=== PATIENT | female | born 1940 | race Caucasian/White ===

== ENCOUNTER 2022-06-13 15:23 | Outpatient (RCR) | payer MEDICARE, BC, SELFPAY ==
[2022-06-13 16:34] LABS: Basophils Absolute Auto 0.02 K/uL (0.00-0.30); Basophils Percent Auto 0.4 % (0.0-3.0); Eosinophils Absolute Auto 0.27 K/uL (0.00-0.50); Eosinophils Percent Auto 5.2 % (0.0-7.0); Hematocrit 41.2 % (33.0-51.0); Hemoglobin* 13.6 gm/dL (12.0-16.0); Immature Granulocytes Abs Auto 0.04 K/uL (0.00-0.30); Immature Granulocytes Pct Auto 0.8 %; Lymphocytes Absolute Auto 2.27 K/uL (0.90-2.90); Mean Corpuscular HGB Conc 33 gm/dL (32-36); Mean Corpuscular Hemoglobin 31 pg (26-34); Mean Corpuscular Volume 93 fL (80-100); Monocytes Percent Auto 11.2 % (0.0-11.0); Neutrophils Percent Auto 38.4 % (42.0-72.0); Red Blood Count 4.41 m/uL (4.00-5.20); White Blood Count* 5.16 K/uL (4.50-11.00)
[2022-06-13 19:30] LABS: Platelet Count* 6 K/uL (140-440); Slide Review Reflex Yes
[2022-06-14 07:57] LABS: Slide Review Acceptable Review (Acceptable)
== END 2023-06-12 14:20 | disposition home or self-care (01) ==
LOC: LAB 15:23
PROVIDERS: Internal Medicine; PCP Family Medicine
DX: D69.3 Immune thrombocytopenic purpura (principal)
CPT/HCPCS: 36415; 85025

== ENCOUNTER 2022-06-13 20:18 | Emergency (ER) | payer MEDICARE, BC, SELFPAY ==
[2022-06-13 20:23] VITALS: BP 157/99; PULSE 97; RESP 16; TEMP 36.7; O2SAT 96; BMI 28.4
--- NOTE | 2022-06-13 20:42 | ED_ITS ---
HPI - General Adult General Time Seen by Provider: 20:42 <Eloisa Hoffman MD - Last Filed: 06/13/22 22:11> Date Seen: 06/13/22 <Eloisa Hoffman MD - Last Filed: 06/13/22 22:11> Chief complaint: Unspecified Complaint, Adult <Eloisa Hoffman MD - Last Filed: 06/13/22 22:11> Stated complaint: Platelets @ 6000-sent by [facility] <Eloisa Hoffman MD - Last Filed: 06/13/22 22:11> Time Seen by Provider: 06/13/22 20:26 <Eloisa Hoffman MD - Last Filed: 06/13/22 22:11> Source: patient and RN notes reviewed <Eloisa Hoffman MD - Last Filed: 06/13/22 22:11> Mode of arrival: ambulatory <Eloisa Hoffman MD - Last Filed: 06/13/22 22:11> Limitations: no limitations <Eloisa Hoffman MD - Last Filed: 06/13/22 22:11> History of Present Illness HPI narrative: Patient is a 81-year-old female with a platelet count of 6000 drawn earlier today that was referred to us by male Hematology. She has been having thrombocytopenia and the workup to date has not given a definitive diagnosis. On May 06 she was hospitalized at [facility] with a platelet count down to 1000. Sounds if she was treated with dexamethasone, IV IG and platelet transfusion. Her platelets have come up, she was 85,000 on June 10. They have continue to follow her every few days. She did start back on her Eliquis this morning but did not take it this evening. They opted to come to our ER. The family member with her states she is supposed to be treated with [address] eroids. 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 Patient is not having any active bleeding. She does not have any petechiae or purpura like she had at her time of initial diagnosis. She has noted no nose bleeds, no oral pharyngeal bleeding. There has been no evidence of any GI bleeding. Her hemoglobins actually remain stable. Reviewed with them that we will need to talk to [facility] to get the recommendations for steroids. We will order platelets but have reviewed with them that we have to get these in from [facility]. If [facility] does want IV IG, will have to talk to Hematology regarding this. Patient is despondent, stating she is just going to , the jewelry casting model maker own care, [facility] does not care. I have reviewed with her that this really is not the case. Sometimes people have some difficult medical diagnoses that we are not able to pinpoint immediately. Certainly does not mean that no one cares. Instead of feeling this way, I have offered her to think about it as it is still in the process of being evaluated, she has some unknowns but there are treatments for her that help her. I have reassured her that she is not actively bleeding and this is very reassuring. We should be able to give her some temporizing measures with the platelets and the outline treatments from hematology. I will most definitely be talking to hematology. <Eloisa Hoffman MD - Last Filed: 06/13/22 22:11> Related Data Home medications: Home Medications Medication Instructions Recorded Confirmed ferrous sulfate 325 mg (65 mg 325 mg PO .EVERY OTHER DAY 05/14/22 06/13/22 iron) tablet metformin 500 mg tablet 1,000 mg PO QPM 05/14/22 06/14/22 ascorbic acid (vitamin C) 1,000 mg 1 g PO Q6H 06/03/22 06/13/22 capsule cholecalciferol (vitamin D3) 25 25 mcg PO .QOD 06/03/22 06/13/22 mcg (1,000 unit) capsule benifiber PO BID 06/13/22 lisinopril 40 mg tablet 40 mg PO DAILY 06/14/22 06/14/22 Previous Rx's Medication Instructions Recorded apixaban 5 mg tablet (Eliquis) 5 mg PO BID #180 tabs 03/26/22 atenolol 50 mg tablet 50 mg PO BID #180 tabs 03/26/22 chlorthalidone 25 mg tablet 25 mg PO QDAY #90 tabs 03/26/22 gabapentin 300 mg capsule 300 mg PO QPM #90 caps 03/26/22 <Eloisa Hoffman MD - Last Filed: 06/13/22 22:11> Allergies/adverse reactions: Allergies Allergy/AdvReac Type Severity Reaction Status Date / Time latex Allergy Intermediate rash, itchy Verified 06/13/22 20:32 ULTRA SOUND GEL Allergy Severe persistent Uncoded 05/14/22 12:49 rash <Eloisa Hoffman MD - Last Filed: 06/13/22 22:11> Review of Systems Status of ROS: Reports: 6 or more systems reviewed and unremarkable except as noted in History and below <Eloisa Hoffman MD - Last Filed: 06/13/22 22:11> 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 <Eloisa Hoffman MD - Last Filed: 06/13/22 22:11> Social History: Social History Smoking Status: Never smoker Do you use any of these nicotine containing products: None How often do you have a drink containing alcohol: never How often do you have six or more drinks on one occasion: Never AUDIT-C Alcohol total score: 0 Non-prescribed substance use: denies use <Eloisa Hoffman MD - Last Filed: 06/13/22 22:11> Exam Const: Vital Signs, click to edit/add: Vital Signs - 24 hr 06/13/22 20:23 06/13/22 23:39 06/14/22 02:41 Temperature 98.0 F 97.9 F Pulse Rate 91 Pulse Rate [Right Pulse Oximeter] 97 95 Respiratory Rate 16 16 16 Blood Pressure 145/94 H Blood Pressure [Ri ght Upper Arm] 157/99 H 163/88 H Pulse Oximetry 96 98 98 Oxygen Delivery Me thod Room Air Room Air 06/14/22 02:58 06/14/22 02:59 06/14/22 05:00 Temperature 97.7 F 97.8 F Pulse Rate 92 90 Pulse Rate [Right Pulse Oximeter] 87 Respiratory Rate 16 16 16 Blood Pressure 147/97 H 155/97 H Blood Pressure [Ri ght Upper Arm] 140/81 H Pulse Oximetry 96 95 95 Oxygen Delivery Me thod Room Air 06/14/22 06:00 06/14/22 07:00 06/14/22 09:00 Temperature 97.6 F Pulse Rate Pulse Rate [Right Pulse Oximeter] 85 87 97 Respiratory Rate 16 18 18 Blood Pressure Blood Pressure [Ri ght Upper Arm] 148/115 H 143/97 H 144/95 H Pulse Oximetry 95 95 96 Oxygen Delivery Me thod Room Air Room Air <Eloisa Hoffman MD - Last Filed: 06/13/22 22:11> Vital Signs, click to edit/add: Vital Signs - 24 hr 06/13/22 20:23 06/13/22 23:39 06/14/22 02:41 Temperature 98.0 F 97.9 F Pulse Rate 91 Pulse Rate [Right Pulse Oximeter] 97 95 Respiratory Rate 16 16 16 Blood Pressure 145/94 H Blood Pressure [Ri ght Upper Arm] 157/99 H 163/88 H Pulse Oximetry 96 98 98 Oxygen Delivery Me thod Room Air Room Air 06/14/22 02:58 06/14/22 02:59 06/14/22 05:00 Temperature 97.7 F 97.8 F Pulse Rate 92 90 Pulse Rate [Right Pulse Oximeter] 87 Respiratory Rate 16 16 16 Blood Pressure 147/97 H 155/97 H Blood Pressure [Ri ght Upper Arm] 140/81 H Pulse Oximetry 96 95 95 Oxygen Delivery Me thod Room Air 06/14/22 06:00 06/14/22 07:00 06/14/22 09:00 Temperature 97.6 F Pulse Rate Pulse Rate [Right Pulse Oximeter] 85 87 97 Respiratory Rate 16 18 18 Blood Pressure Blood Pressure [Ri ght Upper Arm] 148/115 H 143/97 H 144/95 H Pulse Oximetry 95 95 96 Oxygen Delivery Me thod Room Air Room Air <Kelton Delgadillo MD - Last Filed: 06/14/22 07:10> Vital Signs, click to edit/add: Vital Signs - 24 hr 06/13/22 20:23 06/13/22 23:39 06/14/22 02:41 Temperature 98.0 F 97.9 F Pulse Rate 91 Pulse Rate [Right Pulse Oximeter] 97 95 Respiratory Rate 16 16 16 Blood Pressure 145/94 H Blood Pressure [Ri ght Upper Arm] 157/99 H 163/88 H Pulse Oximetry 96 98 98 Oxygen Delivery Me thod Room Air Room Air 06/14/22 02:58 06/14/22 02:59 06/14/22 05:00 Temperature 97.7 F 97.8 F Pulse Rate 92 90 Pulse Rate [Right Pulse Oximeter] 87 Respiratory Rate 16 16 16 Blood Pressure 147/97 H 155/97 H Blood Pressure [Ri ght Upper Arm] 140/81 H Pulse Oximetry 96 95 95 Oxygen Delivery Me thod Room Air 06/14/22 06:00 06/14/22 07:00 06/14/22 09:00 Temperature 97.6 F Pulse Rate Pulse Rate [Right Pulse Oximeter] 85 87 97 Respiratory Rate 16 18 18 Blood Pressure Blood Pressure [Ri ght Upper Arm] 148/115 H 143/97 H 144/95 H Pulse Oximetry 95 95 96 Oxygen Delivery Me thod Room Air Room Air <Yuri Clark MD - Last Filed: 06/14/22 16:49> Documenting provider has reviewed patient's vital signs: yes <Eloisa Hoffman MD - Last Filed: 06/13/22 22:11> Common normals: no apparent distress, average body habitus, oriented x3, no limitations, healthy appearing, alert and well nourished <Eloisa Lino MD - Last Filed: 06/13/22 22:11> General appearance: cooperative, comfortable, well kempt, well developed and anxious <Eloisa Hoffman MD - Last Filed: 06/13/22 22:11> Other: No ecchymosis outside of the blood draw in her left antecubital fossa from earlier today. No petechiae, no purpura. <Eloisa Hoffman MD - Last Filed: 06/13/22 22:11> HENMT: Common normals: normocephalic, head/scalp atraumatic, hearing grossly normal bilaterally, external nose normal, nasal mucous membranes and turbinates normal, moist oral mucous membranes, oropharynx normal, dentition normal and gingiva normal <Eloisa Hoffman MD - Last Filed: 06/13/22 22:11> Head and scalp: normocephalic and atraumatic <Eloisa Hoffman MD - Last Filed: 06/13/22 22:11> Nose: external nose normal and nasal mucous membranes and turbinates normal <Eloisa Hoffman MD - Last Filed: 06/13/22 22:11> Other: No bleeding noted. <Eloisa Hoffman MD - Last Filed: 06/13/22 22:11> Eye: Common normals: PERRL, EOMs intact bilaterally, conjunctivae normal and no scleral icterus <Eloisa Hoffman MD - Last Filed: 06/13/22 22:11> Conjunctiva: conjunctiva(e) normal <Eloisa Hoffman MD - Last Filed: 06/13/22 22:11> Pupil: PERRL <Eloisa Hoffman MD - Last Filed: 06/13/22 22:11> Neck & C-Spine: Common normals: full ROM, no lymphadenopathy, supple, no meningeal signs, no JVD and thyroid normal <Eloisa Hoffman MD - Last Filed: 06/13/22 22:11> Thyroid: thyroid normal <Eloisa Hoffman MD - Last Filed: 06/13/22 22:11> Resp: Common normals: normal respiratory effort, no retractions, no use of accessory muscles and clear to auscultation bilaterally <Eloisa Lino MD - Last Filed: 06/13/22 22:11> Auscultation: clear to auscultation bilaterally <Eloisa Hoffman MD - Last Filed: 06/13/22 22:11> Cardio: Common normals: no JVD, regular rate, regular rhythm (Maybe some ectopy verses irregularity), S1 normal heart sound, S2 normal heart sound, no gallops, no clicks and no murmurs <Eloisa Hoffman MD - Last Filed: 06/13/22 22:11> Rate: regular rate <Eloisa Hoffman MD - Last Filed: 06/13/22 22:11> Rhythm: regular rhythm (Maybe some ectopy verses irregularity) <Eloisa Hoffman MD - Last Filed: 06/13/22 22:11> Heart sounds: S1 normal and S2 normal <Eloisa Hoffman MD - Last Filed: 06/13/22 22:11> GI: Common normals: Normal to inspection, nondistended, normoactive bowel sounds present <Eloisa Hoffman MD - Last Filed: 06/13/22 22:11> Neuro: Common normals: oriented x3 <Eloisa Hoffman MD - Last Filed: 06/13/22 22:11> Sensorium/orientation: alert <Eloisa Hoffman MD - Last Filed: 06/13/22 22:11> Meningeal signs: no meningeal signs <Eloisa Hoffman MD - Last Filed: 06/13/22 22:11> Psych: Appearance: well kempt <Eloisa Hoffman MD - Last Filed: 06/13/22 22:11> Course Reevaluation(s) Reevaluation #1: Reviewed with them the recommendations of dexamethasone 40 mg PO daily x4 days by [facility]. She had gotten 1 g IV IG when at [facility] before and reviewed with them that we do not have this. The physician reviewed that they typically reserve this for active bleeding and he thought we could hold that at this time. He did agree with platelet transfusion. If her platelets are not coming up may need to consider the IVIG and further transfusion. Her physician following her and Hematology at [facility] is Dr. Lora. The on-call physician recommended that they be in contact with him tomorrow. The understand right now that there are no hospital beds. Unfortunately this is a global issue, includes all other local hospitals around us, all other major institutions. We ourselves do not have any hospital beds at this time. Patient will be taking care of in the ER until we can find an appropriate disposition for her. <Eloisa Lino MD - Last Filed: 06/13/22 22:11> Time: 21:13 <Eloisa Hoffman MD - Last Filed: 06/13/22 22:11> Reevaluation #2: I assumed care of this patient from Dr. Zuluaga. Her platelets thrive during the night and she was transfused 1 unit. Unfortunately her follow-up CBC continues to show her platelet count at 6000. She needs transfer to a tertiary hospital with a jewelry casting model maker, ideally [facility] where she has had her care up until this point. She is not actively bleeding and therefore does not need IVIG at this time. She offers no other special concerns. <Kelton Delgadillo MD - Last Filed: 06/14/22 07:10> Consultations Consultation #1: Called the nurse triage [place] [facility], she will page out Hematology for me from [facility]. Furniture Shampooer did call back at 9:02 p.m.. Please see above discussion with the patient which outlines what the jewelry casting model maker recommended. <Eloisa Hoffman MD - Last Filed: 06/13/22 22:11> Time: 20:51 <Eloisa Hoffman MD - Last Filed: 06/13/22 22:11> Vital Signs Vital signs: Initial Vital Signs Temperature 98.0 F 06/13/22 20:23 Temperature Source Temporal Artery Scan 06/13/22 20:23 Pulse Rate 97 06/13/22 20:23 Respiratory Rate 16 06/13/22 20:23 Blood Pressure 157/99 H 06/13/22 20:23 Blood Pressure Mean 118 06/13/22 20:23 Blood Pressure Position Sitting 06/13/22 20:23 Pulse Oximetry 96 06/13/22 20:23 Oxygen Delivery Method 06/13/22 20:23 Vital Signs Temperature 98.0 F 06/13/22 20:23 Pulse Rate 97 06/13/22 20:23 Respiratory Rate 16 06/13/22 20:23 Blood Pressure 157/99 H 06/13/22 20:23 Pulse Oximetry 96 06/13/22 20:23 Oxygen Delivery Method 06/13/22 20:23 Temperature 97.6 F 06/14/22 06:00 Pulse Rate 97 06/14/22 09:00 Respiratory Rate 18 06/14/22 09:00 Blood Pressure 144/95 H 06/14/22 09:00 Pulse Oximetry 96 06/14/22 09:00 Oxygen Delivery Method 06/14/22 07:00 <Eloisa Hoffman MD - Last Filed: 06/13/22 22:11> Initial Vital Signs Temperature 98.0 F 06/13/22 20:23 Temperature Source Temporal Artery Scan 06/13/22 20:23 Pulse Rate 97 06/13/22 20:23 Respiratory Rate 16 06/13/22 20:23 Blood Pressure 157/99 H 06/13/22 20:23 Blood Pressure Mean 118 06/13/22 20:23 Blood Pressure Position Sitting 06/13/22 20:23 Pulse Oximetry 96 06/13/22 20:23 Oxygen Delivery Method 06/13/22 20:23 Vital Signs Temperature 98.0 F 06/13/22 20:23 Pulse Rate 97 06/13/22 20:23 Respiratory Rate 16 06/13/22 20:23 Blood Pressure 157/99 H 06/13/22 20:23 Pulse Oximetry 96 06/13/22 20:23 Oxygen Delivery Method 06/13/22 20:23 Temperature 97.6 F 06/14/22 06:00 Pulse Rate 97 06/14/22 09:00 Respiratory Rate 18 06/14/22 09:00 Blood Pressure 144/95 H 06/14/22 09:00 Pulse Oximetry 96 06/14/22 09:00 Oxygen Delivery Method 06/14/22 07:00 <Kelton Delgadillo MD - Last Filed: 06/14/22 07:10> Initial Vital Signs Temperature 98.0 F 06/13/22 20:23 Temperature Source Temporal Artery Scan 06/13/22 20:23 Pulse Rate 97 06/13/22 20:23 Respiratory Rate 16 06/13/22 20:23 Blood Pressure 157/99 H 06/13/22 20:23 Blood Pressure Mean 118 06/13/22 20:23 Blood Pressure Position Sitting 06/13/22 20:23 Pulse Oximetry 96 06/13/22 20:23 Oxygen Delivery Method 06/13/22 20:23 Vital Signs Temperature 98.0 F 06/13/22 20:23 Pulse Rate 97 06/13/22 20:23 Respiratory Rate 16 12/01/22 20:23 Blood Pressure 157/99 H 06/13/22 20:23 Pulse Oximetry 96 06/13/22 20:23 Oxygen Delivery Method 06/13/22 20:23 Temperature 97.6 F 06/14/22 06:00 Pulse Rate 97 06/14/22 09:00 Respiratory Rate 18 06/14/22 09:00 Blood Pressure 144/95 H 06/14/22 09:00 Pulse Oximetry 96 06/14/22 09:00 Oxygen Delivery Method 06/14/22 07:00 <Yuri Clark MD - Last Filed: 06/14/22 16:49> Medical Decision Making MDM Narrative Medical decision making narrative: Care for this patient was transferred to ok at the end of the overnight physicians shift. She has low platelets and is seeing jewelry casting model maker at the [facility]. She was sent here from the infusion clinic. Unfortunately there are no beds available here or anywhere. So the patient did receive a unit of platelets and this did not improve her platelet level much. The repeat check of platelets was at 6000. The patient also received doses of dexamethasone 10 mg. Soon after my arrival for my shift this morning the patient wanted to speak with me and wanted me also to talk with her advocate. I did speak with a Billie at the infusion clinic who did provide a phone number and the name of a couple doctors at the [facility] where we could coordinate a plan given no beds available for inpatient treatment anywhere. The patient's advocate apparently called the [facility] and arrange for an appointment at 1 p.m. today. The patient wants to leave and be discharged in order to attend this appointment. She understands the risk for bleeding. Given the current situation with hospital admissions being unavailable this plan actually may afford better access for her to appropriate care. She is not actively bleeding and is maintaining normal vital signs. She is discharged to attend to that clinic appointment. Dr. Parveen Clark <Yuri Clark MD - Last Filed: 06/14/22 16:49> Lab Data Labs: Lab Results 06/13/22 06/14/22 Range/Units 21:10 05:30 WBC 3.24 L (4.50-11.00) K/uL RBC 4.25 (4.00-5.20) m/uL Hgb 13.0 (12.0-16.0) gm/dL Hct 38.5 (33.0-51.0) % MCV 91 (80-100) fL MCH 31 (26-34) pg MCHC 34 (32-36) gm/dL RDW Coeff of Kevin 13.0 (11.5-15.5) % Plt Count 6 L* (140-440) K/uL Neut % (Auto) 75.7 H (42.0-72.0) % Lymph % (Auto) 22.5 (20-44) % [place] % (Auto) 1.2 (0.0-11.0) % Eos % (Auto) 0.0 (0.0-7.0) % Baso % (Auto) 0.3 (0.0-3.0) % Neut # (Auto) 2.50 (1.7-7.0) K/uL Lymph # (Auto) 0.70 L (0.90-2.90) K/uL [place] # (Auto) 0.00 (0.00-0.90) K/UL Eos # (Auto) 0.00 (0.00-0.50) K/uL Baso # (Auto) 0.00 (0.00-0.30) K/uL Abs Immat Gran (auto) 0.00 (0.00-0.30) K/uL Imm/Tot Granulo (auto) 0.3 % Blood Type O Negative <Eloisa Hoffman MD - Last Filed: 06/13/22 22:11> Lab Results 06/13/22 06/14/22 Range/Units 21:10 05:30 WBC 3.24 L (4.50-11.00) K/uL RBC 4.25 (4.00-5.20) m/uL Hgb 13.0 (12.0-16.0) gm/dL Hct 38.5 (33.0-51.0) % MCV 91 (80-100) fL MCH 31 (26-34) pg MCHC 34 (32-36) gm/dL RDW Coeff of Kevin 13.0 (11.5-15.5) % Plt Count 6 L* (140-440) K/uL Neut % (Auto) 75.7 H (42.0-72.0) % Lymph % (Auto) 22.5 (20-44) % [place] % (Auto) 1.2 (0.0-11.0) % Eos % (Auto) 0.0 (0.0-7.0) % Baso % (Auto) 0.3 (0.0-3.0) % Neut # (Auto) 2.50 (1.7-7.0) K/uL Lymph # (Auto) 0.70 L (0.90-2.90) K/uL [place] # (Auto) 0.00 (0.00-0.90) K/UL Eos # (Auto) 0.00 (0.00-0.50) K/uL Baso # (Auto) 0.00 (0.00-0.30) K/uL Abs Immat Gran (auto) 0.00 (0.00-0.30) K/uL Imm/Tot Granulo (auto) 0.3 % Blood Type O Negative <Kelton Delgadillo MD - Last Filed: 06/14/22 07:10> Lab Results 06/13/22 06/14/22 Range/Units 21:10 05:30 WBC 3.24 L (4.50-11.00) K/uL RBC 4.25 (4.00-5.20) m/uL Hgb 13.0 (12.0-16.0) gm/dL Hct 38.5 (33.0-51.0) % MCV 91 (80-100) fL MCH 31 (26-34) pg MCHC 34 (32-36) gm/dL RDW Coeff of Kevin 13.0 (11.5-15.5) % Plt Count 6 L* (140-440) K/uL Neut % (Auto) 75.7 H (42.0-72.0) % Lymph % (Auto) 22.5 (20-44) % [place] % (Auto) 1.2 (0.0-11.0) % Eos % (Auto) 0.0 (0.0-7.0) % Baso % (Auto) 0.3 (0.0-3.0) % Neut # (Auto) 2.50 (1.7-7.0) K/uL Lymph # (Auto) 0.70 L (0.90-2.90) K/uL [place] # (Auto) 0.00 (0.00-0.90) K/UL Eos # (Auto) 0.00 (0.00-0.50) K/uL Baso # (Auto) 0.00 (0.00-0.30) K/uL Abs Immat Gran (auto) 0.00 (0.00-0.30) K/uL Imm/Tot Granulo (auto) 0.3 % Blood Type O Negative <Yuri Clark MD - Last Filed: 06/14/22 16:49> Critical Care Time Critical Care Time Critical Care Time: No <Eloisa Hoffman MD - Last Filed: 06/13/22 22:11> Discharge Plan Discharge Clinical Impression: Thrombocytopenia <Eloisa Hoffman MD - Last Filed: 06/13/22 22:11> Patient Disposition: Home, Self-Care <Eloisa Hoffman MD - Last Filed: 06/13/22 22:11> Condition: Unchanged <Eloisa Hoffman MD - Last Filed: 06/13/22 22:11> Additional Instructions: Follow-up with clinic appointment in [place] as scheduled. Return if worsening. <Eloisa Hoffman MD - Last Filed: 06/13/22 22:11> Prescriptions: No Action ascorbic acid (vitamin C) 1,000 mg capsule 1 g PO Q6H cholecalciferol (vitamin D3) 25 mcg (1,000 unit) capsule 25 mcg PO .QOD ferrous sulfate 325 mg (65 mg iron) tablet 325 mg PO .EVERY OTHER DAY metformin 500 mg tablet 1,000 mg PO QPM benifiber PO BID lisinopril 40 mg tablet 40 mg PO DAILY Eliquis 5 mg tablet 5 mg PO BID Qty: 180 3RF atenolol 50 mg tablet 50 mg PO BID Qty: 180 3RF chlorthalidone 25 mg tablet 25 mg PO QDAY Qty: 90 3RF gabapentin 300 mg capsule 300 mg PO QPM Qty: 90 3RF <Eloisa Hoffman MD - Last Filed: 06/13/22 22:11> Follow Up/Referrals: Yuri Boyer MD [Primary Care Provider] - <Eloisa Hoffman MD - Last Filed: 06/13/22 22:11> Stand Alone Forms: MyHealth Info Instructions <Eloisa Hoffman MD - Last Filed: 06/13/22 22:11>
[2022-06-13] MEDS: dexAMETHasone 4 MG TABLET 10 MG PO (21:48)
[2022-06-13 23:39] VITALS: BP 163/88; PULSE 95; RESP 16; O2SAT 98
[2022-06-14] VITALS (7 sets, daily range): BP systolic 140–155; BP diastolic 81–115; PULSE 85–97; RESP 16–18; TEMP 36.4–36.6; O2SAT 95–98
[2022-06-14 05:56] LABS: Basophils Percent Auto 0.3 % (0.0-3.0); Hematocrit 38.5 % (33.0-51.0); Immature Granulocytes Pct Auto 0.3 %; Lymphocytes Percent Auto 22.5 % (20-44); Mean Corpuscular HGB Conc 34 gm/dL (32-36); Mean Corpuscular Hemoglobin 31 pg (26-34); Mean Corpuscular Volume 91 fL (80-100); Monocytes Percent Auto 1.2 % (0.0-11.0); Neutrophils Percent Auto 75.7 % (42.0-72.0); Red Blood Count 4.25 m/uL (4.00-5.20); White Blood Count* 3.24 K/uL (4.50-11.00)
[2022-06-14 06:01] LABS: Platelet Count* 6 K/uL (140-440); Slide Review Reflex No
--- NOTE | 2022-06-14 06:03 | ED.NURSE ---
MD Delgadillo updated on critical platelets
[2022-06-14] MEDS: dexAMETHasone 10 MG/ML inj PO (08:49)
--- NOTE | 2022-06-14 09:32 | PC.NURSE ---
pt utilization management manager light and wanting to be discharged, pt health respiratory care faculty Stephanie was able to make an appointment for her at [facility] at 1pm, per Dr Clark pt is fine to go and follow up with [facility] today, pt states, I should have just gone there in the first place, IV discontinued
== END 2022-06-14 09:45 | disposition home or self-care (01) ==
PROVIDERS: Emergency Provider Family Medicine; PCP Family Medicine
DX: D69.6 Thrombocytopenia, unspecified (principal)
CPT/HCPCS: 36415; 36430; 85025; 86900; 86901; 99284; 99285; A9270; J1100; P9019

== ENCOUNTER 2022-09-10 09:12 | Outpatient (CLI) | payer MEDICARE, BC, SELFPAY ==
[2022-09-10 13:56] LABS: Chloride* 99 mmol/L (96-114)
[2022-09-10 13:57] LABS: Potassium* 3.8 mmol/L (3.6-5.1); Sodium* 138 mmol/L (135-149)
[2022-09-10 13:59] LABS: Cholesterol* 169 mg/dL (90-199); Creatinine* 0.8 mg/dL (0.5-1.5); Estimated Glomerular Filt Rate 74 ml/min
[2022-09-10 14:00] LABS: Blood Urea Nitrogen* 24 mg/dL (7-30); Calcium* 10.3 mg/dL (8.4-10.6); Carbon Dioxide* 31 mmol/L (20-32); Glucose* 137 mg/dL (60-115); Triglycerides* 113 mg/dL (40-149)
[2022-09-10 14:01] LABS: HDL Cholesterol* 85 mg/dL (>=50); LDL Cholesterol Calculated 61 mg/dL (<100)
== END 2022-09-10 09:13 | disposition home or self-care (01) ==
PROVIDERS: PCP Family Medicine; Visit Provider Family Medicine
DX: E13.9 Other specified diabetes mellitus without complications (principal); I10 Essential (primary) hypertension; Z13.6 Encounter for screening for cardiovascular disorders
CPT/HCPCS: 80048; 80061

== ENCOUNTER 2023-04-12 09:30 | Outpatient (CLI) | payer MEDICARE, BC, SELFPAY ==
[2025-04-12 10:31] LABS: Basophils Absolute Auto 0.01 K/uL (0.00-0.30); Basophils Percent Auto 0.2 % (0.0-3.0); Eosinophils Absolute Auto 0.03 K/uL (0.00-0.50); Eosinophils Percent Auto 0.6 % (0.0-7.0); Hematocrit* 41.5 % (33.0-51.0); Hemoglobin* 13.6 gm/dL (12.0-16.0); Immature Granulocytes Abs Auto 0.03 K/uL (0.00-0.30); Immature Granulocytes Pct Auto 0.6 %; Lymphocytes Absolute Auto 1.74 K/uL (0.90-2.90); Lymphocytes Percent Auto 34.1 % (20-44); Mean Corpuscular HGB Conc 33 gm/dL (32-36); Mean Corpuscular Hemoglobin 31 pg (26-34); Mean Corpuscular Volume 95 fL (80-100); Monocytes Percent Auto 12.2 % (0.0-11.0); Neutrophils Absolute Auto 2.67 K/uL (1.7-7.0); Neutrophils Percent Auto 52.3 % (42.0-72.0); Platelet Count* 186 K/uL (140-440); RDW Coefficient of Variation % 13.2 % (11.5-15.5); Red Blood Count* 4.39 m/uL (4.00-5.20)
[2025-04-12 10:33] LABS: Slide Review Reflex No
== END 2023-04-12 09:31 | disposition home or self-care (01) ==
LOC: NPINS 05-10 08:28
PROVIDERS: PCP Internal Medicine; Visit Provider Nurse Practitioner
DX: D69.3 Immune thrombocytopenic purpura (principal)
CPT/HCPCS: 85025

== ENCOUNTER 2023-04-14 10:34 | Outpatient (CLI) | payer MEDICARE, BC, SELFPAY | END 2023-04-14 10:35 | disposition home or self-care (01) | PROVIDERS: PCP Family Medicine; Visit Provider Family Medicine | DX: R53.83 Other fatigue (principal) | CPT/HCPCS: 80053; 84443 ==

== ENCOUNTER 2023-04-30 10:30 | Outpatient (RCR) | payer MEDICARE, BC, SELFPAY ==
--- NOTE | 2023-04-17 16:53 | PT.OPEX ---
PT [facility] Eval PT [facility] Outpatient Eval Start: 04/15/23 16:51 Freq: Status: Active Protocol: Document 04/17/23 10:55 MLS (Rec: 04/17/23 16:48 MLS [id number]) E-signed By Jennifer Coley DPT Physical Therapy Outpatient Evaluation Insurance Information Recert Due Date 07/15/23 Insurance Name Medicare B Medical Diagnosis R26.89 abnormalities of gait and mobility Treating Diagnosis M62.81 muscle weakness ( generalized) R26.2 Difficulty walking M54.50 Low back pain Referring MD Leslee Joel MD Subjective Subjective Patient is an 82-year-old female who presents to physical therapy with signs of overall weakness, deconditioning and balance deficits. She also reports having spinal stenosis. She states that in 1965 she had pelvic fracture and right broken femur. She states that she has had problems since then. She also reports that her left leg is shorter than the other. She reports that she goes to chiropractor once every two weeks for her back. She states that her low back is sore upon waking in the morning, so she puts ice and heat on it and it gives her some relief. She reports some numbness and tingling into both legs at times, but she is used to it. She states that she started on anti-depressant 2 days ago. Prior to the anti-depressant she was only sleeping four hours a night. She states that the new medication seems to help her sleep a little better the past couple of nights. She reports that she has not had any falls. She reports that she does have a walker in her bedroom but she does not use it. She states that she does play cards with her friends a couple times a week. She reports that prolonged sitting in certain chairs can make her back pain and stiffness worse. She states that she does all housework and walks down the driveway to get the mail. She lives in a one level townhouse. There is currently a lot of construction going on around her home, so she doesn't feel safe to walk outside. She feels very unsteady on uneven ground due to her balance. Patient would like to achieve better balance and strength through physical therapy. She would like to get stronger as far as walking goes and feel safer. Pain Comments Today: 0/10 on a 0-10 pain scale with 10 = extreme pain At its worst: 8/10 At its best: 0/10 Current Work Status Retired Occupation She is a retired hairdresser Precautions Treatment Precautions/Contraindications PMH: idiopathic thrombocytopenia purpura, diabetes 1.5, managed as type 2, hypertension, AFib , spinal stenosis of the lumbar region, ascending aortic aneurysm, osteoporosis, pulmonary hypertension, radicular leg pain, neuropathy , cholelithiasis, history of a pelvic fracture, history of crush injury to the left side of her body especially her left upper leg, R RHA, bilateral TKA Weight Bearing Status Full Weight Bearing Therapy Limitations/Systems Review Not Limited Objective Other/Pertinent Objective moderate kyphosis Romberg eyes open: 60 sec with perturbation ( shoes off, feet together) Romberg eyes closes: 60 sec 30 second sts: 7 with assist of hands (First 2 stands, no push off with hands) 5 time sts: 25 sec with assist of hands Age Bracket Time (sec) 60-69 yo 11.4 / 70-79 yo 12.6 / 80- 89 yo 14.8 TU seconds - 13.5 seconds is cut off for norm 60 ? 69 years 8.1 (7.1 ? 9.0) / 70 ? 79 years 9.2 (8.2 ? 10.2) / 80 ? 99 years 11.3 (10.0 ? 12.7) LLE MMT: Hip flexion: R 3+/5 L 3+/5 Hip abduction: R 3+/5 L 3+/5 Hip extension: R 3+/5 L 3+/5 Knee flexion: R 4-/5 L 4-/5 Knee extension: R 4-/5 L 4-/5 Access Code: [email or web address] URL: [email or web address] Date: 04/17/2023 Prepared by: Jennifer Coley Exercises - Standing Hip Abduction with Counter Support - 1 x daily - 7 x weekly - 3 sets - 10 reps - Standing Knee Flexion with Counter Support - 1 x daily - 7 x weekly - 3 sets - 10 reps - Mini Squat with Counter Support - 1 x daily - 7 x weekly - 3 sets - 10 reps Functional Test Performed & Score 12/50 Modified Oswestry Low Back Pain Questionnaire 41/56 DYE Assessment Assessment/Impression Pt is an 82 year old female who presents to physical therapy with overall deconditioning and weakness, decreased balance and instability with walking. She has a significant medical history that contributes to her overall deconditioning. Patient also has notable objective findings including decreased lower extremity strength and impaired balance. Patient is a good candidate for skilled therapy to target deficits described above. Skilled PT intervention is necessary for use of therapeutic exercise manual therapy, neuromuscular re- education, gait training, and therapeutic activity. Functional impairments include difficulty with prolonged sitting, standing, walking, shopping, performing her household duties and ADLs. See appropriate sections of PT eval for complete list of goals and POC. D/C plan and criteria is for pt to achieve the goals as listed below or until max rehab potential is met. Pt was agreeable with plan of care and goals established. Primary Functional Limitations Standing, walking, bending, balance, weakness Plan of Care Rehabilitation Potential Fair Rehabilitation Potential Comments She does have a significant medical history that will impact her PT progress. Physical Therapy Goals STG: Patient will demonstrate independence in performance of home exercise program with the use of video and/or handouts in order to optimize functional mobility and reduce risk for re-injury. Patient will report pain levels <2/10 with all activities in order to improve functional mobility at home, work and during functional leisure activities. Patient will be able to sit and play cards with reports of <2/10 pain. LTG: Patient will report feeling safe and steady when performing all of her ADLs. Patient will be able to walk up and down her driveway twice without reports of feeling unsteady. Patient will demonstrate/ report ability to stand for 30 minutes with pain level <2/10 , to allow for home and recreational tasks Patient will demonstrate to SLS/Tandem for 5 seconds, to allow for safety, improved ambulation on uneven terrain. Patient will have a 5-point increase on her DYE score to show significant improvement in her balance. Patient will be able to perform 5 sts in 20 seconds to show significant improvement. Coordination/Communication With Referral Source Treatment Plan/Direct Interventions Gait Training,Neuromuscular Re -ed,Therapeutic Activities, Therapeutic Exercises Patient Will Be Discharged From Therapy Independently Progressing Evaluation Billing Untimed Code Treatment Minutes 40 Complexity Moderate Certification Information Physician Comment/Change : Physician NPI Number #
== END 2023-08-11 15:09 | disposition home or self-care (01) ==
PROVIDERS: PCP Family Medicine; Visit Provider Family Medicine
DX: R26.89 Other abnormalities of gait and mobility (principal); M62.81 Muscle weakness (generalized); M54.50 Low back pain, unspecified; R26.2 Difficulty in walking, not elsewhere classified; Z51.89 Encounter for other specified aftercare
CPT/HCPCS: 97110; 97162; 97530

== ENCOUNTER 2023-05-04 10:07 | Emergency (ER) | payer MEDICARE, BC, SELFPAY ==
[2023-05-04 10:20] VITALS: BP 136/83; PULSE 87; RESP 18; TEMP 36.3; O2SAT 94; BMI 28.1
--- NOTE | 2023-05-04 10:35 | CRLHL7_ITS ---
For Patients: As a result of the Cures Act, medical imaging exams and procedure reports are released immediately into your electronic medical record. You may view this report before your referring provider. If you have questions, please contact your health care provider. INDICATION: Pain. TECHNIQUE: AP pelvis and 2 views of the right hip. FINDINGS: There is a subtle nondisplaced fracture deformity of the superior right pubic ramus, age uncertain. Comparison with any prior images would be helpful as well as clinical correlation regarding any recent trauma. There is a right hip arthroplasty which is intact. Degenerative change of the symphysis pubis and left hip as well as the lower lumbar spine. Calcifications in the pelvis likely related to uterine fibroids. IMPRESSION: Nondisplaced fracture deformity superior right pubic ramus age indeterminate. Comparison recommended. Clinical correlation recommended. Dictated by Nicolas Gilman MD @ 05/04/2023 11:16:04 AM (Electronically Signed)
--- NOTE | 2023-05-04 10:36 | ED_ITS ---
HPI - General Adult General Time Seen by Provider: 10:36 Date Seen: 05/04/23 Chief complaint: Extremity Pain/Injury, Lower Stated complaint: cant lift right leg Time Seen by Provider: 05/04/23 10:33 Source: patient Mode of arrival: wheelchair Limitations: physical limitation History of Present Illness HPI narrative: Patient is an 82 year white female that has had some pain in her right hip area laterally she has had inability to fully lift her leg over the last couple of days, it seems like it is more related to pain, than it is to actual neurologic complaint. She does report there is some strength deficit there but she has also had a femur fracture from an accident as well as a hip replacement on the right. Her her family daughter were interested in getting a x-ray of her hip. She is doing from some physical therapy and has actually been doing better but today woke up with some right hip pain. No fall or injury. No other systemic signs of illness such as fever chills or rigors. Related Data Home Medications Medication Instructions Recorded Confirmed ferrous sulfate 325 mg (65 mg 325 mg PO .EVERY OTHER DAY 05/14/22 04/30/23 iron) tablet cholecalciferol (vitamin D3) 25 25 mcg PO .QOD 06/03/22 04/30/23 mcg (1,000 unit) capsule benifiber PO BID 06/13/22 04/30/23 ascorbate calcium (vitamin C) 500 500 mg PO QDAY 09/10/22 04/30/23 mg tablet folic acid 1 mg tablet 1 mg PO QDAY 09/10/22 04/30/23 Previous Rx's Medication Instructions Recorded apixaban 5 mg tablet (Eliquis) 5 mg PO BID #180 tabs 04/30/23 atenolol 50 mg tablet 50 mg PO BID #180 tabs 04/30/23 chlorthalidone 25 mg tablet 25 mg PO QDAY #90 tabs 04/30/23 gabapentin 300 mg capsule 300 mg PO QPM #90 caps 04/30/23 lisinopril 40 mg tablet 40 mg PO DAILY #90 tabs 04/30/23 metformin 500 mg tablet 1,000 mg (2 x 500 mg) PO BID #360 04/30/23 tabs trazodone 50 mg tablet 25 mg (1/2 x 50 mg) PO QHS #45 tabs 04/30/23 Allergies Allergy/AdvReac Type Severity Reaction Status Date / Time latex Allergy Intermediate rash, itchy Verified 04/30/23 14:48 ULTRA SOUND GEL Allergy Severe persistent Uncoded 04/30/23 14:48 rash Review of Systems Status of ROS: Reports: 6 or more systems reviewed and unremarkable except as noted in History and below [facility] Surgical History 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) Status post bilateral cataract extraction ?Z98.41 - Cataract extraction status, right eye (ICD-10) ?Z98.42 - Cataract extraction status, left eye (ICD-10) Status post open reduction and internal fixation (ORIF) of fracture ?Z98.890 - Other specified postprocedural states (ICD-10) ?Z87.81 - Personal history of (healed) traumatic fracture (ICD-10) Status post total bilateral knee replacement ?Z96.653 - Presence of artificial knee joint, bilateral (ICD-10) Status post total replacement of hip ?Z96.649 - Presence of unspecified artificial hip joint (ICD-10) Social History What is your current living situation?: I presently have a place to live Problems where you live: no known problems In the past 12 months, utilities in danger of being shut off: no In past 12 months, lack of transportation kept you from medical appts, meetings, work, or getting things needed for daily living: no How hard is it for you to pay for the very basics like food, housing, medical care, and heating: not very hard In the past 12 mos, have been you worried that your food would run out before you had money to buy more?: never true In the past 12 mos, the food you bought just didn't last and you didn't have money to buy more?: never true Are you following a diet prescribed by a doctor: No Are you following a special diet: No Do you want help finding or keeping work or a job: I do not need or want help Known occupational exposures/hazards: No How many days of moderate to strenuous exercise, like a brisk walk, did you do in the last 7 days: 2 Smoking Status: Never smoker Do you use any of these nicotine containing products: None How often do you have a drink containing alcohol: never How often do you have six or more drinks on one occasion: Never AUDIT-C Alcohol total score: 0 Non-prescribed substance use: denies use How often does anyone, including family, friends and others, physically hurt you : never How often does anyone, including family, friends and others, insult or talk down to you: never How often does anyone, including family, friends and others, threaten you with harm: never How often does anyone, including family, friends and others, scream or curse at you: never Little interest or pleasure in doing things: not at all Feeling down, depressed, or hopeless: not at all Are you currently sexually active: No Exam Narrative: Exam Narrative: Objective: Vital signs are unremarkable, no feet fever Patient is able to move her foot adequately, she has no peripheral edema in the right lower extremity I am able to flex extend her hip due [place] mild internal external rotation with mild discomfort but overall she is feels fairly well little bit a lateral hip tenderness over her bursa. No anterior hip pain No lower extremity redness or edema. Const: Vital Signs, click to edit/add: Vital Signs - 24 hr 05/04/23 10:20 Temperature 97.3 F L Pulse Rate [Right Pulse Oximeter] 87 Respiratory Rate 18 Blood Pressure [Ri ght Upper Arm] 136/83 Pulse Oximetry 94 Oxygen Delivery Me thod Room Air Course Vital Signs Vital signs: Initial Vital Signs Temperature 97.3 F L 05/04/23 10:20 Temperature Source Temporal Artery Scan 05/04/23 10:20 Pulse Rate 87 05/04/23 10:20 Respiratory Rate 18 05/04/23 10:20 Blood Pressure 136/83 05/04/23 10:20 Blood Pressure Mean 100 05/04/23 10:20 Blood Pressure Position Sitting 05/04/23 10:20 Pulse Oximetry 94 05/04/23 10:20 Oxygen Delivery Method Room Air 05/04/23 10:20 Vital Signs Temperature 97.3 F L 05/04/23 10:20 Pulse Rate 87 05/04/23 10:20 Respiratory Rate 18 05/04/23 10:20 Blood Pressure 136/83 05/04/23 10:20 Pulse Oximetry 94 10/22/23 10:20 Oxygen Delivery Method Room Air 05/04/23 10:20 Temperature 97.3 F L 05/04/23 10:20 Pulse Rate 87 05/04/23 10:20 Respiratory Rate 18 05/04/23 10:20 Blood Pressure 136/83 05/04/23 10:20 Pulse Oximetry 94 05/04/23 10:20 Oxygen Delivery Method Room Air 05/04/23 10:20 Medical Decision Making MDM Narrative Medical decision making narrative: [age] year white female with the history of hip discomfort now undergoing physical therapy with some improvement but today had increasing pain. She is able to walk with a walker. Will check an x-ray of her hip and pelvis, and likely will need orthopedic follow-up and continue PT. may benefit from a brief course of steroid medication as well. Understands that this may elevate her blood sugar briefly but I think could be helpful for situation. Follow-up with orthopedics in the next 3-4 days, return sooner problems or concerns. Limited weight-bearing, use the walker at home. Addendum 11:30 a.m. the patient has a nondisplaced superior pubic rami fracture. I do not have an old film for comparison, this could possibly be old but certainly have to assume that is somewhat new. She has had this pain for few days now. She is able to ambulate on walker she is able to get around at home. I think it be reasonable for her to simply use Tylenol maybe occasional add ibuprofen and see her regular Dr. Patricio in the next few days. May request orthopedic consult as needed, but typically the recovery is over a couple of weeks and they need to just simply modify their activity and will and weight- bearing. I do not think that hospital admission at this time would be helpful as the patient is getting around pretty well on her own and can limit her weight-bearing and has lots of help. Return as needed. Discharge Plan Discharge Clinical Impression: Acute pain of right hip, Bursitis, Fracture of pubic ramus Patient Disposition: Home w/ Parent or Adult Condition: Stable Additional Instructions: Light activity, use her walker for ambulation, limit your walking. Recheck with Dr. Patricio in the next few days. He may, recommend follow up with Orthopedics next 3-5 days. Return to ED sooner problems or concerns. May use Tylenol, can use an occasional ibuprofen for a couple of days. Would recommend he uses engage in light activity, minimize weight-bearing, always use her walker. Activity Level: Light activity Discharge Diet: Diabetic Prescriptions: No Action cholecalciferol (vitamin D3) 25 mcg (1,000 unit) capsule 25 mcg PO .QOD ascorbate calcium (vitamin C) 500 mg tablet 500 mg PO QDAY folic acid 1 mg tablet 1 mg PO QDAY Eliquis 5 mg tablet 5 mg PO BID Qty: 180 3RF atenolol 50 mg tablet 50 mg PO BID Qty: 180 3RF chlorthalidone 25 mg tablet 25 mg PO QDAY Qty: 90 3RF gabapentin 300 mg capsule 300 mg PO QPM Qty: 90 3RF lisinopril 40 mg tablet 40 mg PO DAILY Qty: 90 3RF metformin 500 mg tablet 1,000 mg PO BID Qty: 360 3RF trazodone 50 mg tablet 25 mg PO QHS Qty: 45 3RF ferrous sulfate 325 mg (65 mg iron) tablet 325 mg PO .EVERY OTHER DAY benifiber PO BID Follow Up/Referrals: Yuri Boyer MD [Primary Care Provider] - Stand Alone Forms: [facility] Info Instructions
== END 2023-05-04 12:18 | disposition home or self-care (01) ==
LOC: ED 10:52
PROVIDERS: Emergency Provider Family Medicine; PCP Family Medicine
DX: S32.511A Fracture of superior rim of right pubis, initial encounter for closed fracture (principal); M70.71 Other bursitis of hip, right hip; M25.551 Pain in right hip
CPT/HCPCS: 73502; 99283; 99284

== ENCOUNTER 2023-09-23 14:50 | Outpatient (CLI) | payer MEDICARE, BC, SELFPAY | END 2023-09-23 14:51 | disposition home or self-care (01) | LOC: NFLDREF 14:51 | PROVIDERS: PCP Internal Medicine; Visit Provider Internal Medicine | DX: Z01.818 Encounter for other preprocedural examination (principal) | CPT/HCPCS: 80053 ==

== ENCOUNTER 2023-10-06 06:01 | Day surgery (SDC) | payer MEDICARE, BC, SELFPAY ==
[2023-10-06] MEDS: LACTATED RINGERS 1000 ML 1,000 ML 100 ML IV (06:35)
[2023-10-06] MEDS: SODIUM CHLORIDE 0.9 % (FLUSH) 10 ML SYRINGE IVF (06:35)
[2023-10-06 06:39] VITALS: BP 131/77; PULSE 77; RESP 16; TEMP 36.6; O2SAT 93; BMI 31.6
[2023-10-06] MEDS: CEFAZOLIN 1 GM inj IVP (07:45)
[2023-10-06] MEDS: BUPIVACAINE 0.5% 30 ML 17.5 ML INJECTION (07:54)
[2023-10-06] MEDS: LIDOCAINE 1 % PF 30 ML 17.5 ML INJECTION (07:54)
--- NOTE | 2023-10-06 08:28 | SUR.OPER ---
PATIENT QUESTIONS ANSWERED SATISFACTORILY PREOPERATIVELY. PATIENT BROUGHT TO OR #1 PER CART. Patient positioned supine on OR #1 bed. The perioperative team supported arms bilaterally on arm boards. Final approval of positioning by surgeon.
--- NOTE | 2023-10-06 08:35 | SUR.OPER ---
SURGEON DECLINES OFFER TO SEND EXCISED TISSUES TO PATHOLOGY.
--- NOTE | 2023-10-06 08:52 | P.GSOP_ITS ---
Operative Note Date of procedure: 10/06/23 Pre-op diagnosis: Left inguinal hernia Post-op diagnosis: Same Type of Procedure: Open repair, left inguinal hernia with mesh Indications: The patient is an 83-year-old female with an increasingly symptomatic left inguinal hernia that she has had for some time. Because it has become more bothersome to her, after discussion of options, she desires repair. Procedure Description: After discussing the risks and benefits of the procedure, the patient signed informed consent.? The operative site was marked and the patient was brought to the operating room and placed on the operating table in supine position.? Care was taken to pad the patient's pressure points.?? The patient was then given sedation by anesthesia.?? The operative site was then prepped and draped in the usual sterile fashion.? A time-out was then performed. Local anesthetic was injected into the skin and subcutaneous tissue overlying the inguinal canal. An ilioinguinal nerve block was performed. An oblique incision was made over the external ring. Dissection was carried down into the subcutaneous tissue using cautery until the external oblique fascia was encountered. This was cleared off. The external ring was identified and after injection of more local anesthetic, the external oblique was incised using a knife. This was extended using the Metzenbaum scissors with care to dissect the underlying cord structures away from the fascia before cutting. Herniated p reperitoneal fat was noted. This was cleared from the inside of the inguinal canal and using mosquitos, the external oblique fascia was retracted. The hernia was cleared from the inside of the inguinal canal. This was found to be an indirect hernia. A tubular structure, which appeared to be the round ligament was encountered adherent to the herniated fat, however it appeared as though it had been previously ligated, possibly with the patient's prior extensive pelvic fixation surgery. This was left alone. I began dissecting through the preperitoneal fat to ensure no additional intra-abdominal structures were located within. The hernia sac was encountered and entered. There was no bowel or bladder noted to be contained within the hernia. The preperitoneal fat was ligated and divided. This was discarded. The hernia sac oversewn with running 3-0 Vicryl suture. This then retracted down into the abdomen. The ilioinguinal nerve had been encountered during the dissection it was retracted away, however on re-examination it appeared to be torn, therefore this was divided using Metzenbaum scissors proximally to avoid sewing this into the mesh. A piece of polypropylene mesh was obtained and cut to size. This was secured to the pubic tubercle using to 0 Prolene on a double-armed suture. The Prolene was run along the inguinal ligament inferiorly and along the transversalis fascia superiorly, joining lateral past the internal ring. The wound was examined for hemostasis which was found to be adequate. The external oblique fascia was then reapproximated with absorbable suture. The wound was then closed in layers including Jermaine's fascia and the dermis with absorbable suture. The skin was then closed with a running subcuticular suture. Sterile dressings were applied. Instrument, sponge, and needle counts were correct at the end of the case. The patient was woken and taken to the PACU in stable condition. The patient tolerated the procedure well. Findings: Left, indirect inguinal hernia Implants: Bard soft mesh Anesthesia: MAC Surgeon: Larissa Lozoya MD Estimated blood loss (mL): 5 Condition: stable Disposition: same day
[2023-10-06 09:00] VITALS: BP 110/70; BP 124/72; PULSE 53; PULSE 56; RESP 16; TEMP 36.6; O2SAT 96; O2SAT 97
--- NOTE | 2023-10-06 09:01 | W.ANESCHARGE ---
Anesthesia Charges Start Date/Time Anesthesia Start Date: 10/06/23 Anesthesia Start Time: 07:35 Stop Date/Time Anesthesia Stop Date: 10/06/23 Anesthesia Stop Time: 08:59 Summary Extremes of Age - Over 70 or under 1: HEALTH CARE SPECIALIST
[2023-10-06 09:15] VITALS: BP 134/92; PULSE 50; RESP 16; O2SAT 97
[2023-10-06 09:30] VITALS: BP 134/84; PULSE 46; RESP 16; O2SAT 97
[2023-10-06] MEDS: HYDROCODONE-ACETAMIN 5-325 MG 1 TAB PO (09:38)
[2023-10-06 09:45] VITALS: BP 145/82; PULSE 51; RESP 16; O2SAT 98
[2023-10-07] MEDS: BUPIVACAINE LIPOSOME 133 MG/10 ML INJ INFILTRATI (08:12)
== END 2023-10-06 10:34 | disposition home or self-care (01) ==
PROVIDERS: PCP Internal Medicine; Visit Provider Surgery
PROC: (CPT 49505; principal; 2023-10-06 07:30)
DX: K40.90 Unilateral inguinal hernia, without obstruction or gangrene, not specified as recurrent (principal)
CPT/HCPCS: 49505; 00830; 82962; 99100; A9270; C1781; C9290; J0665; J0690; J2001; J2371; J2405; J2704; J3010; J7120

== ENCOUNTER 2024-01-05 09:25 | Outpatient (CLI) | payer MEDICARE, SELFPAY ==
--- OUTSIDE RECORDS SUMMARY | 2024-01-07 12:13 | XMS_ITS | Clinical Summary ---
Author Organization [facility] Address [place], [place] [address] Care Team Providers Care Dry Cleaning Teacher Name Role Phone Yuri Boyer MD Primary Care Provider [phone] Allergies Active Allergy Reactions Criticality Noted Date Comments Latex Itching 04/01/2019 Immunizations Name Administration Dates Next Due AMB Influenza, IIV3 (Age >=3 years)(Flu Clinic Only) 05/13/2013,05/28/2012,05/24/2011,2007 Amb Influenza, Inactivated A IIV4 (Age 65+ Years) Preserv Free 03/29/2020 Influenza, High-dose Inactivated 03/25/2017,02/2016,03/21/2015 Influenza, IIV4 03/16/2014 Influenza, Inactivated IIV3 (Age 65+ Years) Preserv Free 04/01/2019,03/30/2018 Social History Tobacco Use Types Packs/Day Years Used Date Smoking Tobacco: Never Assessed Sex and Gender Information Value Date Recorded Sex Assigned at Not on file Gender Identity Not on file Sexual Orientation Not on file Plan of Treatment Health Maintenance Due Date Last Done Comments Tdap 1953 Depression screening for age 12+ 1954 BMI (ht and wt on same day) for age 18+ 1960 Tetanus booster 1962 Zoster (shingles) series for age 50+ (1 of 2) 1992 DEXA/DXA scan for age 65+ 2007 Pneumococcal series for age 65+ (1 of 1 - PCV) 2007 COVID-19 vaccine series ( - 2022-24 season) 2023 Influenza for age 65+ 03/14/2024 03/29/2020 , 04/01/2019, 03/30/2018, Additional history exists Care Teams Dry Cleaning Teacher Relationship Specialty Start Date End Date Yuri Boyer MD PCP - General Family Practice 05/13/13
--- OUTSIDE RECORDS SUMMARY | 2024-01-07 12:13 | XMS_ITS | Referral Summary ---
Author Organization [facility] Address [address] [place] [address] Care Team Providers Care Florist Manager Name Role Phone None Reported, Pcp Primary Care Provider Unavail able Source Comments Patient records contain information from all sites at [facility]. For routine questions regarding patient records, call [phone] during business hours, M-F 8:00 AM - 5:00 PM Central Time. Record requests for emergency care only can be directed to [phone] at any time.[facility] Allergies Active Allergy Reactions Criticality Noted Date Comments Gel Hives (Reselect Reaction) High 07/31/2022 ULTRA SOUND GEL Latex Itching 04/01/2019 Medications Medication Sig Dispensed Refills Start Date End Date Status atenoloL (TENORMIN) 50 mg tablet Take 50 mg by mouth 2 (two) times a day. Active chlorthalidone (HYGROTON) 25 mg tablet Take 25 mg by mouth daily. morning Active lisinopriL (PRINIVIL,ZESTRIL) 40 mg tablet Take 40 mg by mouth daily. evening Active gabapentin (NEURONTIN) 300 mg capsule Take 300 mg by mouth daily. evening Active apixaban (ELIQUIS) 5 mg tablet Take 1 tablet (5 mg total) by mouth as directed. Do not take until discussion with Concrete Placement Equipment Operator. Your platelets need to improve to at least 50 K before restarting this medication 05/17/2022 Active multivitamin-iron- SQ-Lf-zyyakngj (THERAPEUTIC-M) 400 mcg (folic acid) per tablet Take 1 tablet by mouth daily. 05/10/2022 Active metFORMIN (GLUCOPHAGE) 500 mg tablet Take 2 tablets (1,000 mg total) by mouth 2 (two) times a day with meals. evening 120 tablet 11 05/12/2022 Active ferrous sulfate 325 mg (65 mg iron) tablet TAKE 1 TABLET BY MOUTH EVERY OTHER DAY 100 tablet 05/09/2022 Active pantoprazole (PROTONIX) 40 mg EC tablet Take 1 tablet (40 mg total) by mouth every morning before breakfast. 7 tablet 06/14/2022 Active Additional Information Patient not taking.Reported on 06/26/2023 ascorbic acid, vitamin C, (Vitamin C) 1,000 mg tablet Take 1,000 mg by mouth daily. Active folic acid 1 mg tablet Take 1 mg by mouth daily. Active traZODone (DESYREL) 50 mg tablet Take 50 mg by mouth at bedtime. 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 Eliquis was held in the setting of wet purpura and plt < 2. 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 Platelets stabilized and began uptrending after last unit on 05/10 with daily trend of 34k (post-transfusion), 30k on 05/11, and 38k on 05/12. Primary [place] Concrete Placement Equipment Operator: Remi (fellow), Lindsey (banking consultant) Retirement (Current) Anticoagulant Treatment 04/14 Atrial Fibrillation Longstanding Persistent 10/13 Hypertension Essential Primary 11/10/2015 Resolved Problems Problem Noted Date Diagnosed Date Resolved Date Epistaxis 05/07/2022 05/12/2022 Immunizations Name Administration Dates Next Due Influenza high dose QV(65 years or older) (PF) 1 () Social History Tobacco Use Types Packs/Day Years Used Date Smoking Tobacco: Never Smokeless Tobacco: Never Tobacco Cessation:Counseling Given: Not Answered Alcohol Use Standard Drinks/Week Comments Never 0 (1 standard drink = 0.6 oz pur e alcohol) Nutrition Answer Date Recorded Nutrition: EVOO Fat Source Unknown 05/06 Nutrition: Servings of Fruits/Vegetables per Day Not on file 05/06/2022 Dental Answer Date Recorded Dental: Regular Dentist Unknown 05/06/20 Sex and Gender Information Value Date Recorded Sex Assigned at Female 06/03/2022 12:52 PM ASSISTANT PROFESSOR OF BIOCHEMISTRY Gender Identity Female 06/03/2022 12:52 PM ASSISTANT PROFESSOR OF BIOCHEMISTRY Sexual Orientation Straight 06/03/2022 12 :52 PM ASSISTANT PROFESSOR OF BIOCHEMISTRY Last Filed Vital Signs Vital Sign Reading Time Taken Comments Blood Pressure 115/69 07/01/2023 10:29 AM ASSISTANT PROFESSOR OF BIOCHEMISTRY Pulse 74 07/01/2023 10:29 AM ASSISTANT PROFESSOR OF BIOCHEMISTRY Temperature 36.4 ??C (97.5 ??F) 07/01/2023 1 0:29 AM ASSISTANT PROFESSOR OF BIOCHEMISTRY Respiratory Rate 18 06/21/2022 4:48 PM ASSISTANT PROFESSOR OF BIOCHEMISTRY Oxygen Saturation 99% 07/09/2022 7:55 AM ASSISTANT PROFESSOR OF BIOCHEMISTRY Inhaled Oxygen Concentration - - Weight 82.4 kg (181 lb 10.5 oz) 023 10:29 AM ASSISTANT PROFESSOR OF BIOCHEMISTRY Height 165.5 cm (5' 5.16) 07/01/2023 1 0:29 AM ASSISTANT PROFESSOR OF BIOCHEMISTRY Body Mass Index 30.08 07/01/2023 10:29 AM ASSISTANT PROFESSOR OF BIOCHEMISTRY Plan of Treatment Not on file Medical Devices Implanted Type Area Nuclear Engineering Technician Device Identifier Shelf Expiration Date Model / Serial / Lot Hip Implant Hip Implant Right: Hip Knee Implant Knee Implant Bilateral : Knee Procedures Procedure Name Priority Date/Time Associated Diagnosis Comments BASIC METABOLIC PANEL, S/P Routine 07/01/2023 8:50 AM ASSISTANT PROFESSOR OF BIOCHEMISTRY Purpura Idiopathic Thrombocytopenic (HCC) from Last 3 Months or Most Recently Relevant to Health Maintenance Results * (ABNORMAL) Basic Metabolic Panel (07/01/2023 8:50 AM ASSISTANT PROFESSOR OF BIOCHEMISTRY) Potassium, S 4.4 3.6 - 5.2 mmol/L 07/01/2023 9:55 AM ASSISTANT PROFESSOR OF BIOCHEMISTRY DTL Sodium, S 134(L) 135 - 145 mmol/L 07/01/2023 9:55 AM ASSISTANT PROFESSOR OF BIOCHEMISTRY DTL Chloride, S 93(L) 98 - 107 mmol/L 07/01/2023 9:55 AM ASSISTANT PROFESSOR OF BIOCHEMISTRY DTL Bicarbonate, S 31(H) 22 - 29 mmol/L 07/01/2023 9:55 AM ASSISTANT PROFESSOR OF BIOCHEMISTRY DTL Anion Gap 10 7 - 15 07/01/2023 9:55 AM ASSISTANT PROFESSOR OF BIOCHEMISTRY DTL BUN (Blood Urea Nitrogen), S 19 6 - 21 mg/dL 07/01/2023 9:55 AM ASSISTANT PROFESSOR OF BIOCHEMISTRY DTL Creatinine 0.91 0.59 - 1.04 mg/dL 07/01/2023 9:55 AM ASSISTANT PROFESSOR OF BIOCHEMISTRY DTL Estimated GFR (eGFR) 64 >=60 mL/min/BSA 07/01/2023 9:55 AM ASSISTANT PROFESSOR OF BIOCHEMISTRY DTL Comment: Estimated GFR calculated using the 2020 CKD_EPI creatinine equation. Calcium, Total, S 10.3(H) 8.8 - 10.2 mg/dL 07/01/2023 9:55 AM ASSISTANT PROFESSOR OF BIOCHEMISTRY DTL Glucose, S 127 70 - 140 mg/dL 07/01/2023 9:55 AM ASSISTANT PROFESSOR OF BIOCHEMISTRY DTL Blood (Blood, Venous) 07/01/2023 8:50 AM ASSISTANT PROFESSOR OF BIOCHEMISTRY 07/01/2023 9:37 AM ASSISTANT PROFESSOR OF BIOCHEMISTRY Leah Khalil M.D. LAB BLOOD ADD-ON [facility] [address] [place] [address], [facility] [address] [place] [address] from Last 3 Months or Most Recently Relevant to Health Maintenance Advance Directives For more information, please contact: [phone] * Full Code (Latest Code Status on File) Date Activated Date Inactivated Comments 05/07/2022 3:10 AM 05/12/2022 3:05 PM Question Answer Comments Full Code: Discussed Care Teams Florist Manager Relationship Specialty Start Date End Date None Reported, Pcp PCP - General Family Medicine 05/06/22
--- OUTSIDE RECORDS SUMMARY | 2024-01-07 12:13 | XMS_ITS | Clinical Summary ---
Author Organization [facility] Address [address] [place] [address] Care Team Providers Care Tail Dogger Name Role Phone None Reported, Pcp Primary Care Provider Unavail able Source Comments Patient records contain information from all sites at [facility]. For routine questions regarding patient records, call [phone] during business hours, M-F 8:00 AM - 5:00 PM Central Time. Record requests for emergency care only can be directed to [phone] at any time.[facility] Allergies Active Allergy Reactions Criticality Noted Date [...] directed. Do not take until discussion with Statue Carver. Your platelets need to improve to at least 50 K before restarting this medication 05/17/2022 Active multivitamin-iron- EI-Ns-ztcyizsw (THERAPEUTIC-M) 400 mcg (folic acid) per tablet [...] on 05/11, and 38k on 05/12. Primary [place] Statue Carver: Remi (fellow), Lindsey (senior research consultant) Radio Division Captain (Current) Anticoagulant Treatment 04/14 Atrial Fibrillation Longstanding Persistent 10/13 Hypertension Essential Primary 11/10/2015 Resolved Problems Problem Noted Date Diagnosed Date Resolved Date Epistaxis 05/07/2022 05/12/2022 Immunizations Name Administration Dates Next Due Influenza high dose QV(65 years or older) (PF) 1 () Family History Medical History Relation Name Comments [place]' lung Father htn Mother Relation Name Status Comments Father Mother Social History Tobacco Use Types Packs/Day Years [...] Sex Assigned at Female 06/03/2022 12:52 PM PROGRAM MANAGEMENT ANALYST Gender Identity Female 06/03/2022 12:52 PM PROGRAM MANAGEMENT ANALYST Sexual Orientation Straight 06/03/2022 12 :52 PM PROGRAM MANAGEMENT ANALYST Last Filed Vital Signs Vital Sign Reading Time Taken Comments Blood Pressure 115/69 07/01/2023 10:29 AM PROGRAM MANAGEMENT ANALYST Pulse 74 07/01/2023 10:29 AM PROGRAM MANAGEMENT ANALYST Temperature 36.4 ??C (97.5 ??F) 07/01/2023 1 0:29 AM PROGRAM MANAGEMENT ANALYST Respiratory Rate 18 06/21/2022 4:48 PM PROGRAM MANAGEMENT ANALYST Oxygen Saturation 99% 07/09/2022 7:55 AM PROGRAM MANAGEMENT ANALYST Inhaled Oxygen Concentration - - Weight 82.4 kg (181 lb 10.5 oz) 023 10:29 AM PROGRAM MANAGEMENT ANALYST Height 165.5 cm (5' 5.16) 07/01/2023 1 0:29 AM PROGRAM MANAGEMENT ANALYST Body Mass Index 30.08 07/01/2023 10:29 AM PROGRAM MANAGEMENT ANALYST Plan of Treatment Health Maintenance Due Date Last Done Comments Diabetic Office Visit with F oot Exam 1942 Dilated Eye Exam 1942 Hemoglobin A1C 1942 Urine Albumin 1942 Visit: Chronic Disease, age 18+ 1942 Visit: Medicare Annual Wellness 1942 Zoster Vaccines (1 of 2) 1992 Depression Screening (Annual PHQ-2) 07/14/2023 Fall Risk Screen (Annual) 07/14/2023 COVID-19 Vaccine (2022-2 4 season) 2023 06/26/2023, 04/23/2022, 07/03/2021, Additional history exists Creatinine Level (Kidney Fun ction Test) 07/01/2024 07/01/2023, 05/12/2022, 05/09/2022, Additional history exists Office Visit for Blood Press ure Check / Re-check 07/01/2024 07/01/2023 Potassium Level 07/01/2024 07/01/2023, 04/15, 05/09/2022, Additional history exists Sodium Level 07/01/2024 07/01/2023, 04/15, 05/09/2022, Additional history exists DTaP,Tdap,and Td Vaccines (3 - Td or Tdap) 01/31/2028 01/30/2018, 07/04/2008 Pneumococcal vaccine (65+ years) Completed 11/01/19 15, 07/04/2008 Influenza Vaccine Completed 06/26/2023, , 03/29/2020, Additional history exists Medical Devices Implanted Type Area Precinct Police Sergeant Device Identifier Shelf Expiration Date Model / Serial / Lot Hip Implant Hip Implant Right: Hip Knee Implant Knee Implant Bilateral : Knee Procedures Procedure Name Priority Date/Time Associated Diagnosis Comments BASIC METABOLIC PANEL, S/P Routine 07/01/2023 8:50 AM PROGRAM MANAGEMENT ANALYST Purpura Idiopathic Thrombocytopenic (HCC) from Last 3 Months or Most Recently Relevant to Health Maintenance Results * (ABNORMAL) Basic Metabolic Panel (07/01/2023 8:50 AM PROGRAM MANAGEMENT ANALYST) Potassium, S 4.4 3.6 - 5.2 mmol/L 07/01/2023 9:55 AM PROGRAM MANAGEMENT ANALYST DTL Sodium, S 134(L) 135 - 145 mmol/L 07/01/2023 9:55 AM PROGRAM MANAGEMENT ANALYST DTL Chloride, S 93(L) 98 - 107 mmol/L 07/01/2023 9:55 AM PROGRAM MANAGEMENT ANALYST DTL Bicarbonate, S 31(H) 22 - 29 mmol/L 07/01/2023 9:55 AM PROGRAM MANAGEMENT ANALYST DTL Anion Gap 10 7 - 15 07/01/2023 9:55 AM PROGRAM MANAGEMENT ANALYST DTL BUN (Blood Urea Nitrogen), S 19 6 - 21 mg/dL 07/01/2023 9:55 AM PROGRAM MANAGEMENT ANALYST DTL Creatinine 0.91 0.59 - 1.04 mg/dL 07/01/2023 9:55 AM PROGRAM MANAGEMENT ANALYST DTL Estimated GFR (eGFR) 64 >=60 mL/min/BSA 07/01/2023 9:55 AM PROGRAM MANAGEMENT ANALYST DTL Comment: Estimated GFR calculated using the 2020 CKD_EPI creatinine equation. Calcium, Total, S 10.3(H) 8.8 - 10.2 mg/dL 07/01/2023 9:55 AM PROGRAM MANAGEMENT ANALYST DTL Glucose, S 127 70 - 140 mg/dL 07/01/2023 9:55 AM PROGRAM MANAGEMENT ANALYST DTL Blood (Blood, Venous) 07/01/2023 8:50 AM PROGRAM MANAGEMENT ANALYST 07/01/2023 9:37 AM PROGRAM MANAGEMENT ANALYST Leah Khalil M.D. LAB BLOOD ADD-ON [facility] [address] [place] [address], [place] [facility] [address] [place] [address] from Last 3 Months or Most Recently Relevant to Health Maintenance Advance Directives For more information, please contact: [phone] * Full Code (Latest Code Status on File) Date Activated Date Inactivated Comments 05/07/2022 3:10 AM 05/12/2022 3:05 PM Question Answer Comments Full Code: Discussed Care Teams Tail Dogger Relationship Specialty Start Date End Date None Reported, Pcp PCP - General Family Medicine 05/06/22
--- OUTSIDE RECORDS SUMMARY | 2024-01-07 12:13 | XMS_ITS ---
Author Organization [facility] Address [address] [place] [address] Care Team Providers Care Orientor Name Role Phone Unavailable Unavailable Unavailable Surgery Details Not on file Complications Check Surgery Details section. Procedure Estimated Blood Loss Check Surgery Details section. Procedure Findings Check Surgery Details section. Procedure Specimens Taken Check Surgery Details section.
--- OUTSIDE RECORDS SUMMARY | 2024-01-07 12:13 | XMS_ITS | Continuity of Care Document ---
Author Organization [facility] Address [address] [place] [address] Phone Care Team Providers Care Appraiser Oil And Water Name Role Phone Darrell Murillo Unavailable Unavailable Allergies, Adverse Reactions, Alerts Substance Reaction Status Criticality latex Active No Information Medications Medication Instructions Dosage Effective Dates (start - stop) Status Comments gabapentin 300 mg capsule take 1 capsule by oral route every bedtime 1 capsule - Active ATENOLOL (unknown strength) Not Available - Active LISINOPRIL (unknown strength) Not Available - Active CHLORTHALIDONE (unknown strength) Not Available - Active ELIQUIS (unknown strength) Not Available - Active RIOMET (unknown strength) Not Available - Active TYLENOL (unknown strength) Not Available - Active Procedures Procedure Date Office/Outpatient Visit,Padma Young 2017 Advance Directives Directive Yes / No Effective Date File Name No Information Encounters Encounter Description Practice Location Reason(s) For Visit Diagnoses Date Provider Providers Copied on Encounter [facility], [address], [place], [id number] , [place] tel: [phone] [facility] No Information 8 Jose Alberto Ramírez. [facility], [address] [place] [address], [address], [place], [id number] , [place]. tel: [phone] Office/Outpat ient Visit,[facility], [facility], [address], [place], [id number] , [place] tel: [phone] [facility] [place] Other intervertebral disc displacement, lumbar regionSpinal stenosis, lumbar region without neurogenic claudicationSpo ndylolisthesis, lumbar region 8 Panyun Ramírez. [facility], [address] [place] [address], [address], [place], [place], [id number] , [place]. tel:[phone] Referring Provider: Parveen Mejia, [facility] [address] [place], [address]. tel:[phone] Family History Family Member Type Diagnosis Age At Onset No Information Payers Payer name Insurance type Covered libertarian ID Authortrevora daquan(s) [facility] [id number] Medicare [facility] [id number] 1 Social History Type Description Quantity Date Captured Comments Sex Female Smoking Status No Information Chief Complaint And Reason For Visit No Information Reason For Referral Reason For Referral No Information History Of Present Illness Encounter Date Complaint History Of Prese nt Illness No Information Functional Status Date Functional Assessmen t No Information Instructions Date Instruction Additional Infor mation No Information Assessments Type Assessment Date No Information Patient Care Teams Name Effective Dates (start - stop) Status Members No Information
== END 2024-01-05 09:26 | disposition home or self-care (01) ==
LOC: NFLDREF 01-07 12:12
PROVIDERS: PCP Internal Medicine; Referring Provider Internal Medicine; Visit Provider Internal Medicine
DX: E11.9 Type 2 diabetes mellitus without complications (principal); M81.0 Age-related osteoporosis without current pathological fracture; I10 Essential (primary) hypertension; E83.52 Hypercalcemia
CPT/HCPCS: 80053; 80061; 82043; 82306; 82570

== ENCOUNTER 2024-03-10 12:34 | Outpatient (CLI) | payer MEDICARE, BC, SELFPAY ==
--- OUTSIDE RECORDS SUMMARY | 2024-03-10 12:36 | XMS_ITS ---
Author Organization [facility] Address [address] [place] [address] Care Team Providers Care Pump Station Operator Name Role Phone Unavailable Unavailable Unavailable Surgery Details Not on file Complications Check Surgery Details section. Procedure Estimated Blood Loss Check Surgery Details section. Procedure Findings Check Surgery Details section. Procedure Specimens Taken Check Surgery Details section.
--- OUTSIDE RECORDS SUMMARY | 2024-03-10 12:36 | XMS_ITS | Clinical Summary ---
Author Organization [facility] Address [address] [place] [address] Care Team Providers Care Business Line Controller Name Role Phone None Reported, Pcp Primary Care Provider Unavail able Source Comments Patient records contain information from all sites at [facility]. For routine questions regarding patient records, call [phone] during business hours, M-F 8:00 AM - 5:00 PM Central Time. Record requests for emergency care only can be directed to [phone] at any time.[facility] Allergies Active Allergy Reactions Criticality Noted [...] directed. Do not take until discussion with Regulatory Analyst. 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 Primary [place] Regulatory Analyst: Remi (fellow), Lindsey (institutional nutrition consultant) Furnace Unloader (Current) Anticoagulant Treatment 04/14 Atrial Fibrillation Longstanding Persistent 10/13 Hypertension Essential Primary 11/10/2015 Resolved Problems Problem Noted Date Diagnosed Date Resolved Date Epistaxis 05/07/2022 05/12/2022 Immunizations Name Administration Dates Next Due Influenza high dose QV(65 years or older) (PF) 1 () Family History Medical History Relation Name Comments [place]' lung Father htn Mother Relation Name Status [...] Sex Assigned at Female 06/03/2022 12:52 PM WATERMELON INSPECTOR Gender Identity Female 06/03/2022 12:52 PM WATERMELON INSPECTOR Sexual Orientation Straight 06/03/2022 12 :52 PM WATERMELON INSPECTOR Last Filed Vital Signs Vital Sign Reading Time Taken Comments Blood Pressure 115/69 07/01/2023 10:29 AM WATERMELON INSPECTOR Pulse 74 07/01/2023 10:29 AM WATERMELON INSPECTOR Temperature 36.4 ??C (97.5 ??F) 07/01/2023 1 0:29 AM WATERMELON INSPECTOR Respiratory Rate 18 06/21/2022 4:48 PM WATERMELON INSPECTOR Oxygen Saturation 99% 07/09/2022 7:55 AM WATERMELON INSPECTOR Inhaled Oxygen Concentration - - Weight 82.4 kg (181 lb 10.5 oz) 023 10:29 AM WATERMELON INSPECTOR Height 165.5 cm (5' 5.16) 07/01/2023 1 0:29 AM WATERMELON INSPECTOR Body Mass Index 30.08 07/01/2023 10:29 AM WATERMELON INSPECTOR Plan of Treatment Health Maintenance Due Date [...] 2023 06/26/2023, 04/23/2022, 07/03/2021, Additional history exists Influenza Vaccine (#1) 2024 , 05/22/2021, 03/29/2020, Additional history exists Creatinine Level (Kidney Fun [...] vaccine (65+ years) Completed 11/01/19 15, 07/04/2008 Medical Devices Implanted Type Area Programmer Device Identifier Shelf Expiration Date Model / Serial / Lot Hip Implant Hip Implant Right: Hip Knee Implant Knee Implant Bilateral : Knee Procedures Procedure Name Priority Date/Time Associated Diagnosis Comments BASIC METABOLIC PANEL, S/P Routine 07/01/2023 8:50 AM WATERMELON INSPECTOR Purpura Idiopathic Thrombocytopenic (HCC) from Last 3 Months or Most Recently Relevant to Health Maintenance Results * (ABNORMAL) Basic Metabolic Panel (07/01/2023 8:50 AM WATERMELON INSPECTOR) Potassium, S 4.4 3.6 - 5.2 mmol/L 07/01/2023 9:55 AM WATERMELON INSPECTOR DTL Sodium, S 134(L) 135 - 145 mmol/L 07/01/2023 9:55 AM WATERMELON INSPECTOR DTL Chloride, S 93(L) 98 - 107 mmol/L 07/01/2023 9:55 AM WATERMELON INSPECTOR DTL Bicarbonate, S 31(H) 22 - 29 mmol/L 07/01/2023 9:55 AM WATERMELON INSPECTOR DTL Anion Gap 10 7 - 15 07/01/2023 9:55 AM WATERMELON INSPECTOR DTL BUN (Blood Urea Nitrogen), S 19 6 - 21 mg/dL 07/01/2023 9:55 AM WATERMELON INSPECTOR DTL Creatinine 0.91 0.59 - 1.04 mg/dL 07/01/2023 9:55 AM WATERMELON INSPECTOR DTL Estimated GFR (eGFR) 64 >=60 mL/min/BSA 07/01/2023 9:55 AM WATERMELON INSPECTOR DTL Comment: Estimated GFR calculated using the 2020 CKD_EPI creatinine equation. Calcium, Total, S 10.3(H) 8.8 - 10.2 mg/dL 07/01/2023 9:55 AM WATERMELON INSPECTOR DTL Glucose, S 127 70 - 140 mg/dL 07/01/2023 9:55 AM WATERMELON INSPECTOR DTL Blood (Blood, Venous) 07/01/2023 8:50 AM WATERMELON INSPECTOR 07/01/2023 9:37 AM WATERMELON INSPECTOR Leah Khalil M.D. LAB BLOOD ADD-ON [facility] [address] [place] [address], [place] [facility] [address] [place] [address] from Last 3 Months or Most Recently Relevant to Health Maintenance Advance Directives For more information, please contact: [phone] * Full Code (Latest Code Status on File) Date Activated Date Inactivated Comments 05/07/2022 3:10 AM 05/12/2022 3:05 PM Question Answer Comments Full Code: Discussed Care Teams Business Line Controller Relationship Specialty Start Date End Date None Reported, Pcp PCP - General Family Medicine 05/06/22
--- OUTSIDE RECORDS SUMMARY | 2024-03-10 12:36 | XMS_ITS | Continuity of Care Document ---
Author Organization [facility] Address [address] [place] [address] Phone Care Team Providers Care Machine Welt Butter Name Role Phone Darrell Murillo Unavailable Unavailable [...] [facility], [address], [place], [id number] , [place] tel: [phone] [facility] No Information 8 Jose Alberto Ramírez. [facility], [address] [place] [address], [address], [place], [id number] , [place]. tel: [phone] Office/Outpat ient Visit,[facility], [facility], [address], [place], [id number] , [place] tel: [phone] [facility] [place] Other intervertebral disc displacement, lumbar regionSpinal stenosis, lumbar region without neurogenic claudicationSpo ndylolisthesis, lumbar region 8 Panyun Ramírez. [facility], [address] [place] [address], [address], [place], [place], [id number] , [place]. tel:[phone] Referring Provider: Parveen Mejia, [facility] [address] [place], [address]. tel:[phone] Family History Family Member Type Diagnosis Age At Onset No Information Payers Payer name Insurance type Covered green party ID Authortrevora daquan(s) [facility] [id number] Medicare [facility] [id number] 1 Social History Type Description Quantity Date [...]
--- OUTSIDE RECORDS SUMMARY | 2024-03-10 12:36 | XMS_ITS | Referral Summary ---
Author Organization [facility] Address [address] [place] [address] Care Team Providers Care Mobile Developer Name Role Phone None Reported, Pcp Primary Care Provider Unavail able Source Comments Patient records contain information from all sites at [facility]. For routine questions regarding patient records, call [phone] during business hours, M-F 8:00 AM - 5:00 PM Central Time. Record requests for emergency care only can be directed to [phone] at any time.[facility] Allergies Active Allergy Reactions Criticality Noted Date [...] directed. Do not take until discussion with Senior Wind Turbine Technician. Your platelets need to improve to at least 50 K before restarting this medication 05/17/2022 Active multivitamin-iron- FX-Qw-xekknbqf (THERAPEUTIC-M) 400 mcg (folic acid) per tablet [...] on 05/11, and 38k on 05/12. Primary [place] Senior Wind Turbine Technician: Remi (fellow), Lindsey (contamination consultant) Lift Operator (Current) Anticoagulant Treatment 04/14 Atrial Fibrillation Longstanding [...] Sex Assigned at Female 06/03/2022 12:52 PM MULTIMEDIA SPECIALIST Gender Identity Female 06/03/2022 12:52 PM MULTIMEDIA SPECIALIST Sexual Orientation Straight 06/03/2022 12 :52 PM MULTIMEDIA SPECIALIST Last Filed Vital Signs Vital Sign Reading Time Taken Comments Blood Pressure 115/69 07/01/2023 10:29 AM MULTIMEDIA SPECIALIST Pulse 74 07/01/2023 10:29 AM MULTIMEDIA SPECIALIST Temperature 36.4 ??C (97.5 ??F) 07/01/2023 1 0:29 AM MULTIMEDIA SPECIALIST Respiratory Rate 18 06/21/2022 4:48 PM MULTIMEDIA SPECIALIST Oxygen Saturation 99% 07/09/2022 7:55 AM MULTIMEDIA SPECIALIST Inhaled Oxygen Concentration - - Weight 82.4 kg (181 lb 10.5 oz) 023 10:29 AM MULTIMEDIA SPECIALIST Height 165.5 cm (5' 5.16) 07/01/2023 1 0:29 AM MULTIMEDIA SPECIALIST Body Mass Index 30.08 07/01/2023 10:29 AM MULTIMEDIA SPECIALIST Plan of Treatment Not on file Medical Devices Implanted Type Area Field Clerk Device Identifier Shelf Expiration Date Model / Serial / Lot Hip Implant Hip Implant Right: Hip Knee Implant Knee Implant Bilateral : Knee Procedures Procedure Name Priority Date/Time Associated Diagnosis Comments BASIC METABOLIC PANEL, S/P Routine 07/01/2023 8:50 AM MULTIMEDIA SPECIALIST Purpura Idiopathic Thrombocytopenic (HCC) from Last 3 Months or Most Recently Relevant to Health Maintenance Results * (ABNORMAL) Basic Metabolic Panel (07/01/2023 8:50 AM MULTIMEDIA SPECIALIST) Potassium, S 4.4 3.6 - 5.2 mmol/L 07/01/2023 9:55 AM MULTIMEDIA SPECIALIST DTL Sodium, S 134(L) 135 - 145 mmol/L 07/01/2023 9:55 AM MULTIMEDIA SPECIALIST DTL Chloride, S 93(L) 98 - 107 mmol/L 07/01/2023 9:55 AM MULTIMEDIA SPECIALIST DTL Bicarbonate, S 31(H) 22 - 29 mmol/L 07/01/2023 9:55 AM MULTIMEDIA SPECIALIST DTL Anion Gap 10 7 - 15 07/01/2023 9:55 AM MULTIMEDIA SPECIALIST DTL BUN (Blood Urea Nitrogen), S 19 6 - 21 mg/dL 07/01/2023 9:55 AM MULTIMEDIA SPECIALIST DTL Creatinine 0.91 0.59 - 1.04 mg/dL 07/01/2023 9:55 AM MULTIMEDIA SPECIALIST DTL Estimated GFR (eGFR) 64 >=60 mL/min/BSA 07/01/2023 9:55 AM MULTIMEDIA SPECIALIST DTL Comment: Estimated GFR calculated using the 2020 CKD_EPI creatinine equation. Calcium, Total, S 10.3(H) 8.8 - 10.2 mg/dL 07/01/2023 9:55 AM MULTIMEDIA SPECIALIST DTL Glucose, S 127 70 - 140 mg/dL 07/01/2023 9:55 AM MULTIMEDIA SPECIALIST DTL Blood (Blood, Venous) 07/01/2023 8:50 AM MULTIMEDIA SPECIALIST 07/01/2023 9:37 AM MULTIMEDIA SPECIALIST Leah Khalil M.D. LAB BLOOD ADD-ON [facility] [address] [place] [address], [facility]note 3[facility] [address] [place] [address] from Last 3 Months or Most Recently Relevant to Health Maintenance Advance Directives For more information, please contact: [phone] * Full Code (Latest Code Status on File) Date Activated Date Inactivated Comments 05/07/2022 3:10 AM 05/12/2022 3:05 PM Question Answer Comments Full Code: Discussed Care Teams Mobile Developer Relationship Specialty Start Date End Date None Reported, Pcp PCP - General Family Medicine 05/06/22
--- OUTSIDE RECORDS SUMMARY | 2024-03-10 12:36 | XMS_ITS | Clinical Summary ---
Author Organization [facility] Address [place], [place] [address] Care Team Providers Care Icu Clerk Name Role Phone Yuri Boyer MD Primary Care Provider [phone] Allergies Active Allergy Reactions Criticality Noted Date [...] 04/01/2019, 03/30/2018, Additional history exists Care Teams Icu Clerk Relationship Specialty Start Date End Date Yuri Boyer MD PCP - General Family Practice 05/13/13
--- NOTE | 2024-03-10 13:00 | CRLHL7_ITS ---
For Patients: As a result of the Century Cures Act, medical imaging exams and procedure reports are released immediately into your electronic medical record. You may view this report before your referring provider. If you have questions, please contact your health care provider. INDICATION: Aneurysm of ascending thoracic aorta Technique Noncontrast CT images of the chest. COMPARISON: CT chest 12/21/2020. FINDINGS: No focal consolidation, pleural effusion, or pneumothorax. Stable 5 mm solid nodule left lower lobe (series 3 image 60). Stable 6 mm nodule along the left major fissure (series 3 image 42). New 4 mm solid nodule right upper lobe (series 2 image 44). The heart size is normal. No pericardial effusion. Coronary artery atherosclerotic calcifications. No mediastinal or hilar lymphadenopathy. Aneurysmal dilatation of the ascending thoracic aorta measuring 4.1 cm, not significantly changed. Cholelithiasis. Multilevel thoracic spondylosis. No aggressive osseous lesions. Exaggerated thoracic kyphosis. Small right Bochdalek hernia. IMPRESSION: 1. Unchanged aneurysmal dilatation of the ascending thoracic aorta. 2. No acute abnormality in the chest. 3. Multiple small pulmonary nodules, some which are new. Follow-up chest CT could be performed in 12 months if patient has risk factors for malignancy. Please note that all CT scans at this facility use dose modulation, iterative reconstruction, and/or weight-based dosing when appropriate to reduce radiation dose to as low as reasonably achievable. Dictated by Roldan Loomis MD @ 03/10/2024 1:52:39 PM (Electronically Signed)
--- NOTE | 2024-03-10 13:30 | CRLHL7_ITS ---
For Patients: As a result of the Century Cures Act, medical imaging exams and procedure reports are released immediately into your electronic medical record. You may view this report before your referring provider. If you have questions, please contact your health care provider. DXA BONE MINERAL DENSITY STUDY Reason for exam: Osteoporosis. Current height (in): 68. Weight (lb): 184. Menopause age: Not provided. Ethnicity: White. 1. Have you had a previous hip or vertebral fracture? No. 2. Have you had any fractures during your adult life which did not result from significant trauma (e.g., auto accident)? No. 3. Did either of your parents have a hip fracture? No. 4. Do you smoke? No. 5. Have you ever taken Glucocorticoids? Yes. 6. Do you have rheumatoid arthritis? No. 7. Do you have secondary osteoporosis? Yes. 8. Do you drink 3 or more alcoholic drinks per day? No. 9. Are you being treated for osteoporosis? Yes. 10. Have you ever taken any of the following medications: Actonel, Evista, Fosamax, Miacalcin, Reclast, Boniva, Forteo, HRT (i.e. estrogen/hormone therapy), Protelos, Prolia, Vitamin D, Calcium, other ??? please specify. ANSWER: Yes, Fosamax and Vitamin D. 11. Do you have any of the following medical conditions: Anorexia or bulimia, asthma or emphysema, end stage renal disease, hyperparathyroidism, any seizure disorders, cancer, inflammatory bowel diseases, hysterectomy, other ??? please specify. ANSWER: No. 12. What was your maximum height (inches)? 68. 13. Do you perform weight bearing exercise regularly? No. 14. Do you regularly consume dairy products? Yes. 15. Do you drink caffeinated beverages? Yes. 16. At what age did your period start? 16. 17. Are you premenopausal? No. 18. How many full term pregnancies have you had? 2. 19. Have you ever missed your period for more than 6 months in a row (not including or menopause)? No. TECHNIQUE: Bone mineral density study was performed using the [email or web address]. FINDINGS: The results of the study expressed as bone mineral density (BMD) are as follows: Lumbar spine L1 to L2: BMD: 1.051 g/cm2. T-score: 0.7. Z-score: 3.2. Neck Left: BMD: 0.642 g/cm2. T-score: -1.9. Z-score: 0.5. Total Left: BMD: 0.810 g/cm2. T-score: -1.1. Z-score: 1.1. Radius Left 33%: BMD: 0.538 g/cm2. T-score: -2.6. Z-score: 0.7. IMPRESSION: Osteoporosis. *Comparison exams done prior to 12/2019 were performed on different unit, hereO. COMPARISON: Compared with scan of 07/29/2016, the bone mineral density has increased by 12 percent at the spine and decreased by 4.6 percent at the hip. Kelton Torres M.D. Diagnostic Radiologist [email or web address] SP/Dictated by: Kelton Torres MD @ 03/11/2024 12:21:00 PM (Electronically Signed)
== END 2024-03-10 12:35 | disposition home or self-care (01) ==
PROVIDERS: PCP Internal Medicine; Visit Provider Internal Medicine
DX: I71.21 Aneurysm of the ascending aorta, without rupture (principal); R91.8 Other nonspecific abnormal finding of lung field; M81.0 Age-related osteoporosis without current pathological fracture
CPT/HCPCS: 71250; 77080

== ENCOUNTER 2024-03-20 07:30 | Emergency (ER) | payer MEDICARE, BC, SELFPAY ==
[2024-03-20 07:36] VITALS: BP 159/96; PULSE 75; RESP 16; TEMP 37.3; O2SAT 95; BMI 28.0
--- NOTE | 2024-03-20 07:49 | CRLHL7_ITS ---
For Patients: As a result of the Century Cures Act, medical imaging exams and procedure reports are released immediately into your electronic medical record. You may view this report before your referring provider. If you have questions, please contact your health care provider. INDICATION: Fell, elbow injury COMPARISON: None. TECHNIQUE: Three views left elbow FINDINGS: Nondisplaced radial head fracture. No articular surface gap or step-off. Normal elbow joint alignment. Large joint effusion. 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 IMPRESSION: 1. Nondisplaced left radial head fracture. 2. 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 Dictated by Bell Ng MD @ 03/20/2024 8:25:30 AM (Electronically Signed)
--- OUTSIDE RECORDS SUMMARY | 2024-03-20 08:11 | XMS_ITS | Continuity of Care Document ---
Author Organization [facility] Address [address] [place] [address] Phone Care Team Providers Care Fire Sprinkler Service Technician Name Role Phone Darrell Murillo Unavailable Unavailable Allergies, Adverse Reactions, Alerts Substance Reaction Status Criticality latex Active No Information Medications Medication Instructions Dosage Effective Dates (start - stop) Status Comments gabapentin 300 mg capsule take 1 capsule by oral route every bedtime 1 capsule - Active TYLENOL (unknown strength) Not Available - Active RIOMET (unknown strength) Not Available - Active ELIQUIS (unknown strength) Not Available - Active CHLORTHALIDONE (unknown strength) Not Available - Active LISINOPRIL (unknown strength) Not Available - Active ATENOLOL (unknown strength) Not Available - Active Procedures Procedure Date Office/Outpatient Visit,Padma Young 2017 Advance Directives Directive Yes / No Effective Date File Name No Information Encounters Encounter Description Practice Location Reason(s) For Visit Diagnoses Date Provider Providers Copied on Encounter [facility], [address], [place], [id number] , [place] tel: [phone] [facility] No Information 8 Jose Alberto Ramírez. [facility], [address], [address], [place], [id number] , [place]. tel: [phone] Office/Outpat ient Visit,[facility], [facility], [address], [place], [id number] , [place] tel: [phone] [facility] [place] Other intervertebral disc displacement, lumbar regionSpinal stenosis, lumbar region without neurogenic claudicationSpo ndylolisthesis, lumbar region 8 Panyun Ramírez. [facility], [address] [place] [address], [address], [place], [place], [id number] , [place]. tel:[phone] Referring Provider: Parveen Mejia, [facility] [address] [place], [address]. tel:[phone] Family History Family Member Type Diagnosis Age At Onset No Information Payers Payer name Insurance type Covered democrat ID Authortrevora daquan(s) [facility] [id number] Medicare [facility] [id number] 1 Social History Type Description Quantity Date [...]
--- OUTSIDE RECORDS SUMMARY | 2024-03-20 08:11 | XMS_ITS ---
Author Organization [facility] Address [address] [place] [address] Care Team Providers Care Box Spinner Name Role Phone Unavailable Unavailable Unavailable Surgery Details Not on file Complications Check Surgery Details section. Procedure Estimated Blood Loss Check Surgery Details section. Procedure Findings Check Surgery Details section. Procedure Specimens Taken Check Surgery Details section.
--- OUTSIDE RECORDS SUMMARY | 2024-03-20 08:11 | XMS_ITS | Referral Summary ---
Author Organization [facility] Address [address] [place] [address] Care Team Providers Care Stamp Collector Name Role Phone None Reported, Pcp Primary Care Provider Unavail able Source Comments Patient records contain information from all sites at [facility]. For routine questions regarding patient records, call [phone] during business hours, M-F 8:00 AM - 5:00 PM Central Time. Record requests for emergency care only can be directed to [phone] at any time.[facility] Allergies Active Allergy Reactions Criticality Noted Date [...] directed. Do not take until discussion with Shipping Team Leader. Your platelets need to improve to at least 50 K before restarting this medication 05/17/2022 Active multivitamin-iron- KW-Zx-fjnjqjmg (THERAPEUTIC-M) 400 mcg (folic acid) per tablet [...] on 05/11, and 38k on 05/12. Primary [place] Shipping Team Leader: Remi (fellow), Lindsey (sap ppm consultant) Long-Term (Current) Anticoagulant Treatment 04/14 Atrial Fibrillation Longstanding [...] Sex Assigned at Female 06/03/2022 12:52 PM DELIVERY COORDINATOR Gender Identity Female 06/03/2022 12:52 PM DELIVERY COORDINATOR Sexual Orientation Straight 06/03/2022 12 :52 PM DELIVERY COORDINATOR Last Filed Vital Signs Vital Sign Reading Time Taken Comments Blood Pressure 115/69 07/01/2023 10:29 AM DELIVERY COORDINATOR Pulse 74 07/01/2023 10:29 AM DELIVERY COORDINATOR Temperature 36.4 ??C (97.5 ??F) 07/01/2023 1 0:29 AM DELIVERY COORDINATOR Respiratory Rate 18 06/21/2022 4:48 PM DELIVERY COORDINATOR Oxygen Saturation 99% 07/09/2022 7:55 AM DELIVERY COORDINATOR Inhaled Oxygen Concentration - - Weight 82.4 kg (181 lb 10.5 oz) 023 10:29 AM DELIVERY COORDINATOR Height 165.5 cm (5' 5.16) 07/01/2023 1 0:29 AM DELIVERY COORDINATOR Body Mass Index 30.08 07/01/2023 10:29 AM DELIVERY COORDINATOR Plan of Treatment Not on file Medical Devices Implanted Type Area Rampman Device Identifier Shelf Expiration Date Model / Serial / Lot Hip Implant Hip Implant Right: Hip Knee Implant Knee Implant Bilateral : Knee Procedures Procedure Name Priority Date/Time Associated Diagnosis Comments BASIC METABOLIC PANEL, S/P Routine 07/01/2023 8:50 AM DELIVERY COORDINATOR Purpura Idiopathic Thrombocytopenic (HCC) from Last 3 Months or Most Recently Relevant to Health Maintenance Results * (ABNORMAL) Basic Metabolic Panel (07/01/2023 8:50 AM DELIVERY COORDINATOR) Potassium, S 4.4 3.6 - 5.2 mmol/L 07/01/2023 9:55 AM DELIVERY COORDINATOR DTL Sodium, S 134(L) 135 - 145 mmol/L 07/01/2023 9:55 AM DELIVERY COORDINATOR DTL Chloride, S 93(L) 98 - 107 mmol/L 07/01/2023 9:55 AM DELIVERY COORDINATOR DTL Bicarbonate, S 31(H) 22 - 29 mmol/L 07/01/2023 9:55 AM DELIVERY COORDINATOR DTL Anion Gap 10 7 - 15 07/01/2023 9:55 AM DELIVERY COORDINATOR DTL BUN (Blood Urea Nitrogen), S 19 6 - 21 mg/dL 07/01/2023 9:55 AM DELIVERY COORDINATOR DTL Creatinine 0.91 0.59 - 1.04 mg/dL 07/01/2023 9:55 AM DELIVERY COORDINATOR DTL Estimated GFR (eGFR) 64 >=60 mL/min/BSA 07/01/2023 9:55 AM DELIVERY COORDINATOR DTL Comment: Estimated GFR calculated using the 2020 CKD_EPI creatinine equation. Calcium, Total, S 10.3(H) 8.8 - 10.2 mg/dL 07/01/2023 9:55 AM DELIVERY COORDINATOR DTL Glucose, S 127 70 - 140 mg/dL 07/01/2023 9:55 AM DELIVERY COORDINATOR DTL Blood (Blood, Venous) 07/01/2023 8:50 AM DELIVERY COORDINATOR 07/01/2023 9:37 AM DELIVERY COORDINATOR Leah Khalil M.D. LAB BLOOD ADD-ON [facility] [place] [address] [place] [address], [facility] [address] [place] [address] from Last 3 Months or Most Recently Relevant to Health Maintenance Advance Directives For more information, please contact: [phone] * Full Code (Latest Code Status on File) Date Activated Date Inactivated Comments 05/07/2022 3:10 AM 05/12/2022 3:05 PM Question Answer Comments Full Code: Discussed Care Teams Stamp Collector Relationship Specialty Start Date End Date None Reported, Pcp PCP - General Family Medicine 05/06/22
--- OUTSIDE RECORDS SUMMARY | 2024-03-20 08:11 | XMS_ITS | Clinical Summary ---
Author Organization [facility] Address [address] [place] [address] Care Team Providers Care Conservation Scientist Name Role Phone None Reported, Pcp Primary Care Provider Unavail able Source Comments Patient records contain information from all sites at [facility]. For routine questions regarding patient records, call [phone] during business hours, M-F 8:00 AM - 5:00 PM Central Time. Record requests for emergency care only can be directed to [phone] at any time.[facility] Allergies Active Allergy Reactions Criticality Noted Date [...] directed. Do not take until discussion with Equipment Operation Instructor. Your platelets need to improve to at least 50 K before restarting this medication 05/17/2022 Active multivitamin-iron- MZ-Oo-jkvuxvot (THERAPEUTIC-M) 400 mcg (folic acid) per tablet [...] on 05/11, and 38k on 05/12. Primary [place] Equipment Operation Instructor: Remi (fellow), Lindsey (regional sales consultant) Prison (Current) Anticoagulant Treatment 04/14 Atrial Fibrillation Longstanding Persistent 10/13 Hypertension Essential Primary 11/10/2015 Resolved Problems Problem Noted Date Diagnosed Date Resolved Date Epistaxis 05/07/2022 05/12/2022 Immunizations Name Administration Dates Next Due Influenza high dose QV(65 years or older) (PF) 1 () Family History Medical History Relation Name Comments [place] Father htn Mother Relation Name Status [...] Sex Assigned at Female 06/03/2022 12:52 PM EXTRACTOR OPERATOR Gender Identity Female 06/03/2022 12:52 PM EXTRACTOR OPERATOR Sexual Orientation Straight 06/03/2022 12 :52 PM EXTRACTOR OPERATOR Last Filed Vital Signs Vital Sign Reading Time Taken Comments Blood Pressure 115/69 07/01/2023 10:29 AM EXTRACTOR OPERATOR Pulse 74 07/01/2023 10:29 AM EXTRACTOR OPERATOR Temperature 36.4 ??C (97.5 ??F) 07/01/2023 1 0:29 AM EXTRACTOR OPERATOR Respiratory Rate 18 06/21/2022 4:48 PM EXTRACTOR OPERATOR Oxygen Saturation 99% 07/09/2022 7:55 AM EXTRACTOR OPERATOR Inhaled Oxygen Concentration - - Weight 82.4 kg (181 lb 10.5 oz) 023 10:29 AM EXTRACTOR OPERATOR Height 165.5 cm (5' 5.16) 07/01/2023 1 0:29 AM EXTRACTOR OPERATOR Body Mass Index 30.08 07/01/2023 10:29 AM EXTRACTOR OPERATOR Plan of Treatment Health Maintenance Due Date Last Done Comments Diabetic Office Visit with F oot Exam 1942 Dilated Eye Exam 1942 Hemoglobin A1C 1942 Urine Albumin 1942 Visit: Chronic Disease, age 18+ 1942 Visit: Medicare Annual Wellness 1942 Zoster Vaccines (1 of 2) 1992 Depression Screening (Annual PHQ-2) 07/14/2023 Fall Risk Screen (Annual) 07/14/2023 COVID-19 Vaccine (2022-2 4 season) 2024 06/26/2023, 04/23/2022, 07/03/2021, Additional history exists Influenza [...] 15, 07/04/2008 Medical Devices Implanted Type Area Motor Equipment Captain Device Identifier Shelf Expiration Date Model / Serial / Lot Hip Implant Hip Implant Right: Hip Knee Implant Knee Implant Bilateral : Knee Procedures Procedure Name Priority Date/Time Associated Diagnosis Comments BASIC METABOLIC PANEL, S/P Routine 07/01/2023 8:50 AM EXTRACTOR OPERATOR Purpura Idiopathic Thrombocytopenic (HCC) from Last 3 Months or Most Recently Relevant to Health Maintenance Results * (ABNORMAL) Basic Metabolic Panel (07/01/2023 8:50 AM EXTRACTOR OPERATOR) Potassium, S 4.4 3.6 - 5.2 mmol/L 07/01/2023 9:55 AM EXTRACTOR OPERATOR DTL Sodium, S 134(L) 135 - 145 mmol/L 07/01/2023 9:55 AM EXTRACTOR OPERATOR DTL Chloride, S 93(L) 98 - 107 mmol/L 07/01/2023 9:55 AM EXTRACTOR OPERATOR DTL Bicarbonate, S 31(H) 22 - 29 mmol/L 07/01/2023 9:55 AM EXTRACTOR OPERATOR DTL Anion Gap 10 7 - 15 07/01/2023 9:55 AM EXTRACTOR OPERATOR DTL BUN (Blood Urea Nitrogen), S 19 6 - 21 mg/dL 07/01/2023 9:55 AM EXTRACTOR OPERATOR DTL Creatinine 0.91 0.59 - 1.04 mg/dL 07/01/2023 9:55 AM EXTRACTOR OPERATOR DTL Estimated GFR (eGFR) 64 >=60 mL/min/BSA 07/01/2023 9:55 AM EXTRACTOR OPERATOR DTL Comment: Estimated GFR calculated using the 2020 CKD_EPI creatinine equation. Calcium, Total, S 10.3(H) 8.8 - 10.2 mg/dL 07/01/2023 9:55 AM EXTRACTOR OPERATOR DTL Glucose, S 127 70 - 140 mg/dL 07/01/2023 9:55 AM EXTRACTOR OPERATOR DTL Blood (Blood, Venous) 07/01/2023 8:50 AM EXTRACTOR OPERATOR 07/01/2023 9:37 AM EXTRACTOR OPERATOR Leah Khalil M.D. LAB BLOOD ADD-ON [facility] [address] [place] [address], [place] [facility] [address] [place] [address] from Last 3 Months or Most Recently Relevant to Health Maintenance Advance Directives For more information, please contact: [phone] * Full Code (Latest Code Status on File) Date Activated Date Inactivated Comments 05/07/2022 3:10 AM 05/12/2022 3:05 PM Question Answer Comments Full Code: Discussed Care Teams Conservation Scientist Relationship Specialty Start Date End Date None Reported, Pcp PCP - General Family Medicine 05/06/22
--- OUTSIDE RECORDS SUMMARY | 2024-03-20 08:11 | XMS_ITS | Clinical Summary ---
Author Organization [facility] Address [place], [place] [address] Care Team Providers Care Traveling Inventory Associate Name Role Phone Yuri Boyer MD Primary Care Provider Allergies Active Allergy Reactions Criticality Noted Date [...] PCV) 2007 COVID-19 vaccine series ( - 2022- season) 2024 Influenza for age 65+ 03/14/2024 03/29/2020 , 04/01/2019, 03/30/2018, Additional history exists Care Teams Traveling Inventory Associate Relationship Specialty Start Date End Date Yuri Boyer MD PCP - General Family Practice 05/13/13
[2024-03-20] MEDS: ACETAMINOPHEN 500 MG TABLET 1000 MG PO (08:25)
--- NOTE | 2024-03-20 08:35 | ED_ITS ---
HPI - Extremity Injury (Upper) General Chief Complaint: Extremity Pain/Injury, Upper Stated Complaint: fell 03/18 injured left elbow Time Seen by Provider: 03/20/24 08:16 History of Present Illness HPI narrative: Patient is 83-year-old woman who 3 days ago stumbled and fell on her left elbow. She has been having limited range of motion with the elbow due to pain. The pain is in the mid posterior aspect of the elbow and she has a difficult time both flexing and extending the elbow. She has no wrist pain no shoulder pain no other related symptoms she did not hit her head and did not lose consciousness. She is otherwise uninjured. She has no skin breakdown. No bruising mild swel ling noted. Related Data Home Medications ?Medication ?Instructions ?Recorded ?Confirmed ferrous sulfate 325 mg (65 mg 325 mg PO .EVERY OTHER DAY 05/14/22 03/20/24 iron) tablet cholecalciferol (vitamin D3) 25 25 mcg PO .QOD 06/03/22 03/20/24 mcg (1,000 unit) capsule benifiber PO BID 06/13/22 01/08/24 ascorbate calcium (vitamin C) 500 500 mg PO QDAY 09/10/22 03/20/24 mg tablet folic acid 1 mg tablet 1 mg PO QDAY 09/10/22 03/20/24 Previous Rx's ?Medication ?Instructions ?Recorded apixaban 5 mg tablet (Eliquis) 5 mg PO BID #180 tabs 04/30/23 trazodone 50 mg tablet 50 mg PO QHS #90 tabs 05/29/23 amoxicillin 500 mg capsule 2,000 mg (4 x 500 mg) PO ONCE #4 07/30/23 caps alendronate 70 mg tablet 70 mg PO QWEEK #12 tabs 01/08/24 atenolol 50 mg tablet 50 mg PO BID #180 tabs 01/08/24 chlorthalidone 25 mg tablet 25 mg PO QDAY #90 tabs 01/08/24 gabapentin 300 mg capsule 300 mg PO QPM #90 caps 01/08/24 lisinopril 40 mg tablet 40 mg PO DAILY #90 tabs 01/08/24 metformin 1,000 mg tablet 1,000 mg PO BID #180 tabs 01/08/24 hydrocodone 5 mg-acetaminophen 325 1 tab PO BID PRN pain #10 tabs 03/20/24 mg tablet Allergies Allergy/AdvReac Type Severity Reaction Status Date / Time latex Allergy Intermediate rash, itchy Verified 03/20/24 07:39 ULTRA SOUND GEL Allergy Severe persistent Uncoded 01/08/24 09:48 rash Review of Systems Status of ROS: Reports: 6 or more systems reviewed and unremarkable except as noted in History and below [facility] Medical History History of idiopathic thrombocytopenic purpura ?Z86.2 - Personal history of diseases of the blood and blood-forming organs and certain disorders involving the immune mechanism (ICD-10) Surgical History History of inguinal hernia repair ?Z98.890 - Other specified postprocedural states (ICD-10) ?Z87.19 - Personal history of other diseases of the digestive system (ICD-10) History of cataract surgery ?Z98.49 - Cataract extraction status, unspecified eye (ICD-10) History of hip replacement ?Z96.649 - Presence of unspecified artificial hip joint (ICD-10) History of total knee replacement ?Z96.659 - Presence of unspecified artificial knee joint (ICD-10) 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 Retired hairdresser. What is your current living situation?: I presently have a place to live Problems where you live: no known problems In the past 12 months, utilities in danger of being shut off: no In past 12 months, lack of transportation kept you from medical appts, meetings, work, or getting things needed for daily living: no How hard is it for you to pay for the very basics like food, housing, medical care, and heating: not very hard In the past 12 mos, have been you worried that your food would run out before you had money to buy more?: never true In the past 12 mos, the food you bought just didn't last and you didn't have money to buy more?: never true Are you following a diet prescribed by a doctor: No Are you following a special diet: No Do you want help finding or keeping work or a job: I do not need or want help Known occupational exposures/hazards: No How many days of moderate to strenuous exercise, like a brisk walk, did you do in the last 7 days: 2 Smoking Status: Never smoker Do you use any of these nicotine containing products: None How often do you have a drink containing alcohol: never How often do you have six or more drinks on one occasion: Never AUDIT-C Alcohol total score: 0 Non-prescribed substance use: denies use Caffeine: Yes How often does anyone, including family, friends and others, physically hurt you : never How often does anyone, including family, friends and others, insult or talk down to you: never How often does anyone, including family, friends and others, threaten you with harm: never How often does anyone, including family, friends and others, scream or curse at you: never Little interest or pleasure in doing things: not at all Feeling down, depressed, or hopeless: not at all Are you currently sexually active: No Exam Narrative: Exam Narrative: EXAM GENERAL: Patient appears comfortable and well. EYES: No scleral icterus. LYMPH: No supraclavicular or cervical lymphadenopathy. SKIN: Visible skin seen during exam normal or with benign process only. EXT: No dependent lower extremity pedal edema. Tenderness and lack of range of motion left elbow noted. HEART: Regular rate and rhythm with no murmurs, rubs, or gallops. LUNGS: Clear to auscultation bilaterally with no crackles or wheezes. ABD: Soft, non tender, non distended. PSYCH: Good eye contact, speech is not pressured. Const: Vital Signs, click to edit/add: Vital Signs - 24 hr 03/20/24 07:36 Temperature 99.1 F Pulse Rate [Left P ulse Oximeter] 75 Respiratory Rate 16 Blood Pressure [Ri ght Upper Arm] 159/96 H Pulse Oximetry 95 Oxygen Delivery Me thod Room Air Course Course ED Course: Patient seen and examined. X-ray reviewed showing fracture. Vital Signs Vital signs: Initial Vital Signs Temperature 99.1 F 03/20/24 07:36 Temperature Source Temporal Artery Scan 03/20/24 07:36 Pulse Rate 75 03/20/24 07:36 Pulse Rhythm Regular 03/20/24 07:36 Pulse Strength 3+ Normal 03/20/24 07:36 Respiratory Rate 16 03/20/24 07:36 Blood Pressure 159/96 H 03/20/24 07:36 Blood Pressure Mean 117 H 03/20/24 07:36 Blood Pressure Position Sitting 03/20/24 07:36 Pulse Oximetry 95 03/20/24 07:36 Oxygen Delivery Method Room Air 03/20/24 07:36 Vital Signs Temperature 99.1 F 03/20/24 07:36 Pulse Rate 75 03/20/24 07:36 Respiratory Rate 16 03/20/24 07:36 Blood Pressure 159/96 H 03/20/24 07:36 Pulse Oximetry 95 03/20/24 07:36 Oxygen Delivery Method Room Air 03/20/24 07:36 Temperature 99.1 F 03/20/24 07:36 Pulse Rate 75 03/20/24 07:36 Respiratory Rate 16 03/20/24 07:36 Blood Pressure 159/96 H 03/20/24 07:36 Pulse Oximetry 95 03/20/24 07:36 Oxygen Delivery Method Room Air 03/20/24 07:36 Medications Administered Medications: Discontinued Medications Generic Name Dose Route Start Last Admin Trade Name Jamesq PRN Reason Stop Dose Admin Acetaminophen 1,000 mg 03/20/24 08:14 03/20/24 08:25 Acetaminophen 500 Mg Tablet PO 03/20/24 08:15 1,000 mg ONCE ONE Administration MDM - Extremity Injury (Upper) MDM Narrative Medical decision making narrative: Patient is a 83-year-old woman who fell 3 days ago she comes in with pain in left posterior elbow with lack of range of motion. She has a nondisplaced radial head fracture are x-ray. She is splinted and we will treat with Gray and Tylenol ice and orthopedic follow-up in 2-3 days. Discharge Plan Discharge Clinical Impression: Elbow fracture, left Patient Disposition: Home, Self-Care Condition: Stable Instructions: Elbow Fracture (ED) Additional Instructions: Ice Splint Sling Tylenol Gray Orthopedic follow-up Activity Level: No Restrictions Discharge Diet: Regular Prescriptions: New hydrocodone-acetaminophen 5-325 mg tablet 1 tab PO BID PRN (Reason: pain) Qty: 10 0RF No Action cholecalciferol (vitamin D3) 25 mcg (1,000 unit) capsule 25 mcg PO .QOD ascorbate calcium (vitamin C) 500 mg tablet 500 mg PO QDAY folic acid 1 mg tablet 1 mg PO QDAY Eliquis 5 mg tablet 5 mg PO BID Qty: 180 3RF Hold Instructions: Resume on 10/08/23. Resume your Eliquis Friday. ferrous sulfate 325 mg (65 mg iron) tablet 325 mg PO .EVERY OTHER DAY metformin 1,000 mg tablet 1,000 mg PO BID Qty: 180 3RF alendronate 70 mg tablet 70 mg PO QWEEK Qty: 12 3RF atenolol 50 mg tablet 50 mg PO BID Qty: 180 3RF chlorthalidone 25 mg tablet 25 mg PO QDAY Qty: 90 3RF gabapentin 300 mg capsule 300 mg PO QPM Qty: 90 3RF lisinopril 40 mg tablet 40 mg PO DAILY Qty: 90 3RF benifiber PO BID trazodone 50 mg tablet 50 mg PO QHS Qty: 90 3RF amoxicillin 500 mg capsule 2,000 mg PO ONCE Qty: 4 3RF Rx Instructions: Take 4 capsules (2000mg) 1 hour prior to dental appointment. Follow Up/Referrals: Hina Villa MD [Primary Care Provider] - Stand Alone Forms: [facility] Info Instructions
== END 2024-03-20 08:53 | disposition home or self-care (01) ==
PROVIDERS: Emergency Provider Internal Medicine; PCP Internal Medicine
DX: S52.125A Nondisplaced fracture of head of left radius, initial encounter for closed fracture (principal); W01.0XXA Fall on same level from slipping, tripping and stumbling without subsequent striking against object, initial encounter
CPT/HCPCS: 29125; 73080; 99283; A9270

== ENCOUNTER 2024-04-30 15:30 | Outpatient (RCR) | payer MEDICARE, BC, SELFPAY ==
--- NOTE | 2024-04-07 16:09 | OT.OPOE ---
OT Outpatient Ortho Eval OT Outpatient Ortho Eval* Start: 04/06/24 17:34 Freq: Status: Active Protocol: Document 04/07/24 12:56 AMB (Rec: 04/07/24 16:06 AMB [id number]) E-signed By Aminata Hernandez, OTR/L, CLT, RN SANE OT OP Ortho Eval Details Complexity Complexity Low Insurance Information Insurance Information Medicare B Outpatient History/Precautions Current Condition/Medical Diagnosis Referring Provider Larissa Vann PA-C Medical Diagnoses s52.122A Displace fracture of head of left radius, Treatment Diagnosis R53.1 LUE weakness M25.622 Stiffness Left elbow Medical Conditions DM,Heart Condition,HTN,Metal Implants Other Conditions PMH (copied from ortho chart): Active Problems (Reviewed @ 10:44 by Anna Acosta ~ RN, RN) Elbow fracture, left (Acute) Closed treatment of a closed, acute, nondisplaced left radial head fracture. DOI: 03/18. S42.402A - Unspecified fracture of lower end of left humerus, initial encounter for closed fracture (ICD-10) Pulmonary nodules (Acute) Multiple old and some new nodule seen by CT scan 03/06, consider repeating in 1 year ( 03/07) R91.8 - Other nonspecific abnormal finding of lung field (ICD-10) COVID-19 vaccination declined (Acute) 01/04 Z28.21 - Immunization not carried out because of patient refusal (ICD-10) Essential hypertension (Acute) on medication I10 - Essential (primary) hypertension (ICD-10) Ascending aortic aneurysm ( Acute) Last screen CT 12/2020, 4 cm stable, stable by CT chest I71.2 - Thoracic aortic aneurysm, without rupture (ICD -10) Right bundle branch block ( Acute) I45.10 - Unspecified right bundle-branch block (ICD-10) Type 2 diabetes mellitus ( Acute) on metformin since around 2014 E11.9 - Type 2 diabetes mellitus without complications (ICD-10) Persistent atrial fibrillation (Acute) on apixaban/Eliquis and atenolol I48.19 - Other persistent atrial fibrillation (ICD-10) Chronic insomnia (Acute) on trazodone F51.04 - Psychophysiologic insomnia (ICD-10) Spinal stenosis of lumbar region (Acute) on gabapentin M48.061 - Spinal stenosis, lumbar region without neurogenic claudication (ICD- 10) Osteoporosis (Acute) on alendronate, latest DEXA M81.0 - Age-related osteoporosis without current pathological fracture (ICD-10) Medical History (Reviewed @ 10:44 by Anna Acosta ~ RN, RN) History of idiopathic thrombocytopenic purpura Z86.2 - Personal history of diseases of the blood and blood-forming organs and certain disorders involving the immune mechanism (ICD-10) Surgical History (Reviewed @ 10:45 by Anna Acosta ~ RN, RN) History of inguinal hernia repair Z98.890 - Other specified postprocedural states (ICD-10) Z87.19 - Personal history of other diseases of the digestive system (ICD-10) History of cataract surgery Z98.49 - Cataract extraction status, unspecified eye (ICD- 10) History of hip replacement Z96.649 - Presence of unspecified artificial hip joint (ICD-10) History of total knee replacement Z96.659 - Presence of unspecified artificial knee joint (ICD-10) 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 EVERY OTHER DAY folic acid 1 mg PO QDAY gabapentin 300 mg PO QPM lisinopril 40 mg PO DAILY metformin 1,000 mg PO BID trazodone 50 mg PO QHS Medical/Functional History Medical History Reviewed Yes Prior Level of Function/Mobility Prior to injury, pt had full, pain-free use of her LUE. Social History Employment Status Retired Hobbies Plays cards, likes to read Ortho Subjective Subjective Subjective Pt states she fell 03/18/24 while walking to the mailbox, landed on her left elbow, she was seen in ER 2 days later and put in a cast and referred to Ortho, she states she had another cast put on in orthopedics and she kept this on for 11 days. Pt states she is doing quite well, denies any pain. Pt states she is doing all of her own cleaning, cooking, laundry, self cares, etc and has not had any pain . [facility] and does not do any yardwork or any other heavy chores. Pt is a retired hairdresser. Pt states she had a broken femur and pelvis. Pain Assessment Pain Pain No Goniometric Comments Goniometric Comments Goniometric Comments 04/07/24 Pt has full AROM of BUE with the exception of her left elbow which is really only limited in extension. AROM of the LUE elbow is -10 deg of extension to 140 deg of flexion, RUE is 0-140 deg. Pt has no pain at EROM, EROM is soft. Pt has full, pain- free pronation and supination as well. Hand Pinch/Calender Tender Strength Comments Comments 04/07/24 Too early for strength testing. OT Objective Data Hand Hand Dominance Right OT Problems Problems Problems Decreased Strength,Decreased Range of Motion,Lifting, Pinching Other Problems Opening Containers Patient Potential Good Assessment Assessment Assessment Pt is a very pleasant 83yo referred to OT for Evaluation and Treatment of the LUE elbow following radial head fx on . Pt is 3 weeks post injury and doing extremely well. Pt has full flexion and 10 deg limited extension of her left elbow, full, pain- free ROM of shoulder, forearm, wrist and hand. Pt has maintained her independence with ADLs and IADLs and denies any pain. Pt will benefit from a few OT sessions to maximize ROM and to initiate strengthening once it is appropriate. Occupational Therapy Treatment Plan - OP Potential Rehabilitation Potential Excellent Barriers Barriers to goal attainment Pt is elderly, lives out of town and prefers to have fewer visits so she does not have to drive so much. Set Goals Goals Set with Patient Yes Goals Goals 1. Pt will be independent and compliant with HEP in order to resume full, pain-free use of the involved UE. 3 weeks 2. Pt will demonstrate full, pain-free AROM of the involved UE in order to improve ability to grasp and hold. 6 weeks 3. Pt will demonstrate pain- free garden machinery mechanic and pinch strength comparable to the uninvolved side in order to improve functional grasp, hold, reach, and lifting ability needed to complete self-care, leisure tasks, and work activities. 8 weeks. Target Date 07/07/24 Treatment Plan Treatment Plan Evaluation,Edema Control,Joint Mobilization,Manual Therapy, Splinting,Ultrasound,Wound Care/Scar Management, Therapeutic Exercise, Therapeutic Activities,Self Care/Home Management,Education Expected Frequency 1-2x Week Expected Duration 8-10 Weeks Home Program Home Program Home Program Initiated Home Program Specifics Provided pt with HEP for active ROM of her LUE elbow, forearm, and wrist. Too early to initiate strengthening of the elbow and forearm, but she was given level 2 putty for initiation of light garden machinery mechanic strengthening. Certification Certification Statement I Certify That: Therapy Services Provided, Therapy Plan Established, Therapy Plan Reviewed Certification Information Clinic ID # [id number] Initial Certification Date 04/07/24 Recertification Due Date 06/06/24 Provider Signature Required Yes Provider Signature Shows Agreement With POC & Medical Necessity Physician NPI Number Write NPI# Here Physician Comment/Change Comment or Changes Physician Signature & Date Requested Please Sign/Date Here
== END 2024-04-30 16:27 | disposition home or self-care (01) ==
PROVIDERS: PCP Internal Medicine; Visit Provider Physician Assistant Surgical
DX: S52.122A Displaced fracture of head of left radius, initial encounter for closed fracture (principal); R53.1 Weakness; M25.622 Stiffness of left elbow, not elsewhere classified; Z51.89 Encounter for other specified aftercare
CPT/HCPCS: 97110; 97165; 97530; X5282

== ENCOUNTER 2024-06-28 22:43 | Emergency (ER) | payer MEDICARE, BC, SELFPAY ==
[2024-06-28 22:57] VITALS: BP 180/104; PULSE 88; RESP 20; TEMP 37.1; O2SAT 95; BMI 27.8
--- NOTE | 2024-06-28 22:58 | ED_ITS ---
HPI - General Adult General Time Seen by Provider: 22:58 Date Seen: 06/28/24 Chief complaint: Extremity Pain/Injury, Upper Stated complaint: left arm numbness, tingling Time Seen by Provider: 06/28/24 22:58 Source: patient Mode of arrival: ambulatory Limitations: no limitations History of Present Illness HPI narrative: Pau Mcnally is a very pleasant 83-year-old female with known history of atrial fibrillation, chronic anticoagulation with apixaban, history of ascending aortic aneurysm who comes to the emergency room for evaluation regarding left arm pain. Pau Macdonald originally triage left arm pain with concerns regarding stroke or heart issues but upon further discussion this has been going on for at least a month. Pau Mcnally states that back in February she actually fractured her elbow. She felt that it healed well and underwent physical therapy and actually became pain- free. However she stopped doing her exercises. She notes that she now has had intermittent tingling in her left hand, all of her fingers including her thumb as well as pain extending from the shoulder through the elbow and through the arm. She notes that she was seen a few weeks ago and was given prednisone which she thinks helped somewhat. Since that time she has been using hydrocodone and Tylenol. Today she had a dose at 0930 hours but did not have any subsequent doses until 930 this evening. She has a friend and brinell tester with her that notes that this was the 1st time that Pau Mcnally had actually describe tingling and because of that she was very concerned about possible stroke and that is why she brought her to the emergency room. Again, week ascertain that this has been going on for a couple of weeks. No shortness of breath or chest pain tonight. No worsening fluid retention, fever or chills. Denies nausea or vomiting. Her caregiver tonight notes that the pain seems to radiate into her left shoulder blade. She notes that she was rubbing Pau Mcnally is back in the pain seemed to be deeper than what she could touch. Related Data Home Medications ?Medication ?Instructions ?Recorded ?Confirmed ferrous sulfate 325 mg (65 mg 325 mg PO .EVERY OTHER DAY 05/14/22 06/28/24 iron) tablet cholecalciferol (vitamin D3) 25 25 mcg PO .QOD 06/03/22 06/28/24 mcg (1,000 unit) capsule benifiber PO BID 06/13/22 06/16/24 ascorbate calcium (vitamin C) 500 500 mg PO QDAY 09/10/22 06/28/24 mg tablet folic acid 1 mg tablet 1 mg PO QDAY 09/10/22 06/16/24 Previous Rx's ?Medication ?Instructions ?Recorded amoxicillin 500 mg capsule 2,000 mg (4 x 500 mg) PO ONCE #4 07/30/23 caps alendronate 70 mg tablet 70 mg PO QWEEK #12 tabs 01/08/24 atenolol 50 mg tablet 50 mg PO BID #180 tabs 01/08/24 chlorthalidone 25 mg tablet 25 mg PO QDAY #90 tabs 01/08/24 gabapentin 300 mg capsule 300 mg PO QPM #90 caps 01/08/24 lisinopril 40 mg tablet 40 mg PO DAILY #90 tabs 01/08/24 metformin 1,000 mg tablet 1,000 mg PO BID #180 tabs 01/08/24 hydrocodone 5 mg-acetaminophen 325 1 tab PO Q8H PRN pain #20 tabs 06/16/24 mg tablet prednisone 20 mg tablet 20 mg PO BID #10 tabs 06/16/24 apixaban 5 mg tablet (Eliquis) 5 mg PO BID #180 tabs 06/18/24 trazodone 50 mg tablet 50 mg PO QHS #90 tabs 06/18/24 Allergies Allergy/AdvReac Type Severity Reaction Status Date / Time latex Allergy Intermediate rash, itchy Verified 06/28/24 22:57 ULTRA SOUND GEL Allergy Severe persistent Uncoded 06/16/24 13:03 rash Review of Systems Status of ROS: Reports: 10 or more systems reviewed and unremarkable except as noted in History and below Const: Denies: fever or chills ENMT: Denies: throat pain or neck pain Cardio: Reports: swelling of feet/ankles; Denies: chest pain, palpitations, edema, lightheadedness or shortness of breath with exertion Resp: Denies: shortness of breath GI: Denies: abdominal pain, nausea or vomiting Musculo: Denies: neck pain PFSH PFSH Medical History Back pain ?M54.9 - Dorsalgia, unspecified (ICD-10) History of idiopathic thrombocytopenic purpura ?Z86.2 - Personal history of diseases of the blood and blood-forming organs and certain disorders involving the immune mechanism (ICD-10) Surgical History History of inguinal hernia repair ?Z98.890 - Other specified postprocedural states (ICD-10) ?Z87.19 - Personal history of other diseases of the digestive system (ICD-10) History of cataract surgery ?Z98.49 - Cataract extraction status, unspecified eye (ICD-10) History of hip replacement ?Z96.649 - Presence of unspecified artificial hip joint (ICD-10) History of total knee replacement ?Z96.659 - Presence of unspecified artificial knee joint (ICD-10) 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 Retired hairdresser. What is your current living situation?: I presently have a place to live Problems where you live: no known problems In the past 12 months, utilities in danger of being shut off: no How hard is it for you to pay for the very basics like food, housing, medical care, and heating: not very hard In the past 12 mos, have been you worried that your food would run out before you had money to buy more?: never true In the past 12 mos, the food you bought just didn't last and you didn't have money to buy more?: never true Are you following a diet prescribed by a doctor: No Are you following a special diet: No Do you want help finding or keeping work or a job: I do not need or want help Known occupational exposures/hazards: No How many days of moderate to strenuous exercise, like a brisk walk, did you do in the last 7 days: 2 Smoking Status: Never smoker Do you use any of these nicotine containing products: None How often do you have a drink containing alcohol: never How often do you have six or more drinks on one occasion: Never AUDIT-C Alcohol total score: 0 Non-prescribed substance use: denies use Caffeine: Yes How often does anyone, including family, friends and others, physically hurt you : never How often does anyone, including family, friends and others, insult or talk down to you: never How often does anyone, including family, friends and others, threaten you with harm: never How often does anyone, including family, friends and others, scream or curse at you: never Are you currently sexually active: No Exam Narrative: Exam Narrative: Patient is alert and oriented. No acute distress. GCS of 15. Head is atraumatic normocephalic. Face is symmetrical. Speech is normal. Palpation over cervical spine does not yield any tenderness. Spurling sign negative bilaterally. Palpation over the shoulder elbow upper arm without tenderness. Crusher Machine Operator strength is symmetrical. However abduction of the left fingers is somewhat weak compared to the right. Flexion extension at the elbows within normal limits. Heart with a irregularly irregular rhythm but normal rate. Lungs are clear. Abdomen soft nontender. No pulsating mass. Pedal pulses symmetrical. Moving all extremities. NIH SS 0 Const: Vital Signs, click to edit/add: Vital Signs - 24 hr 06/28/24 22:57 Temperature 98.8 F Pulse Rate [Pulse Oximeter] 88 Respiratory Rate 20 Blood Pressure [Ri ght Upper Arm] 180/104 H Pulse Oximetry 95 Oxygen Delivery Me thod Room Air Documenting provider has reviewed patient's vital signs: yes Course Course ED Course: Patient states that she is actually feeling a little bit better at this time after having taking hydrocodone at home. We have ascertained that these sym ptoms are not new this evening but were concerning to the brinell tester as she had not heard of the tingling before. EKG is rate controlled atrial fibrillation at this time. Recommend we do check D-dimer with history of aortic aneurysm, troponin, CBC and comprehensive panel. Will also x-ray neck and I do expect to find significant arthritic changes. Patient is in agreement with this plan. Pau Mcnally and her friend initially very concerned about her elevated blood pressure of 180/104 but a blood pressure at the end of our discussion was 150s over 88. Reevaluation(s) Reevaluation #1: Patient informed that her cervical spine x-ray shows anterolisthesis as well as multilevel arthritic changes. Upon further discussion it does seem that Pau Mcnally is looking down a lot at her tablet where she plays games. I do think heard symptoms will increase if she continues to do this or if she is looking up for an extended period of time. I have asked her to try to maintain her neck in neutral position. CBC reassuring at this time with a white count of 6.31, hemoglobin of 14 and platelets [id number]. Vital Signs Vital signs: Initial Vital Signs Temperature 98.8 F 06/28/24 22:57 Temperature Source Temporal Artery Scan 06/28/24 22:57 Pulse Rate 88 06/28/24 22:57 Pulse Rhythm Regular 06/28/24 22:57 Pulse Strength 3+ Normal 06/28/24 22:57 Respiratory Rate 20 06/28/24 22:57 Blood Pressure 180/104 H 06/28/24 22:57 Blood Pressure Mean 129 H 06/28/24 22:57 Pulse Oximetry 95 06/28/24 22:57 Oxygen Delivery Method Room Air 06/28/24 22:57 Vital Signs Temperature 98.8 F 06/28/24 22:57 Pulse Rate 88 06/28/24 22:57 Respiratory Rate 20 06/28/24 22:57 Blood Pressure 180/104 H 06/28/24 22:57 Pulse Oximetry 95 06/28/24 22:57 Oxygen Delivery Method Room Air 06/28/24 22:57 Temperature 98.8 F 06/28/24 22:57 Pulse Rate 88 06/28/24 22:57 Respiratory Rate 20 06/28/24 22:57 Blood Pressure 180/104 H 06/28/24 22:57 Pulse Oximetry 95 06/28/24 22:57 Oxygen Delivery Method Room Air 06/28/24 22:[address] [facility] Narrative Medical decision making narrative: 1. Left arm pain-suggest that this is likely radicular in nature given patient's description. EKG reassuring. One troponin was done which was negative. I think that with these ongoing symptoms over the past month we do not need to do a 2nd troponin. This does not appear to be cardiac in nature. I do not note an y evidence of a stroke with examination or with history.. Patient noted to have resolution of symptoms while she has been in the ED. Likely this is related to cervical spine spondylosis, anterolisthesis and positioning of head while looking at her tablet and playing games. She is asked to try to maintain her head in neutral position. At this time I would not like to repeat doses of steroids even though they gave her some slight improvement given the fact that she is on anticoagulation. Instead will switch her from hydrocodone to oxycodone. Oxycodone 5 mg 1/2-1 tab q.4-6 hours p.r.n. pain is ordered. Did explain that this medication would be designed to take the edge off her discomfort and not completely relieve the discomfort. Would have her follow-up with her primary MD for further evaluation possible MRI. 2. History of aortic aneurysm -D-dimer is negative. No chest pain at this time. 3. Disposition-home at this time with brinell tester who is a good friend. Follow-up as directed. Return to the emergency room for worsening symptoms. Medical Records Medical records reviewed: Yes I reviewed the patient's medical records Lab Data Lab results reviewed: Yes I reviewed the patient's lab results Labs: Lab Results 06/28/24 06/28/24 06/28/24 Range/Units 23:17 23:21 23:55 WBC 6.31 (4.50-11.00) K/uL RBC 4.44 (4.00-5.20) m/uL Hgb 14.0 (12.0-16.0) gm/dL Hct 42.7 (33.0-51.0) % MCV 96 (80-100) fL MCH 32 (26-34) pg MCHC 33 (32-36) gm/dL RDW Coeff of Kevin 13.0 (11.5-15.5) % Plt Count 164 (140-440) K/uL Neut % (Auto) 56.9 (42.0-72.0) % Lymph % (Auto) 28.7 (20-44) % [place] % (Auto) 12.4 H (0.0-11.0) % Eos % (Auto) 0.5 (0.0-7.0) % Baso % (Auto) 0.2 (0.0-3.0) % Neut # (Auto) 3.60 (1.7-7.0) K/uL Lymph # (Auto) 1.81 (0.90-2.90) K/uL [place] # (Auto) 0.80 (0.00-0.90) K/UL Eos # (Auto) 0.03 (0.00-0.50) K/uL Baso # (Auto) 0.01 (0.00-0.30) K/uL Abs Immat Gran (auto) 0.08 (0.00-0.30) K/uL Imm/Tot Granulo (auto) 1.3 % D-Dimer Quant (PE/DVT) 0.29 (0.00-0.50) ug/ml Sodium 135 (135-149) mmol/L Potassium 3.6 (3.6-5.1) mmol/L Chloride 97 (96-114) mmol/L Carbon Dioxide 28 (20-32) mmol/L Anion Gap 10 (7-15) mEq/L BUN 27 (7-30) mg/dL Creatinine 0.8 (0.5-1.5) mg/dL Estimated Creat Clear 44.51 Estimated GFR 74 ml/min Glucose 123 H (60-115) mg/dL Calcium 10.4 (8.4-10.6) mg/dL Total Bilirubin 0.7 (0.1-1.5) mg/dL AST 23 (12-35) U/L ALT 16 (4-35) U/L Alkaline Phosphatase 74 (40-150) U/L Total Protein 7.1 (6.0-8.3) g/dL Albumin 4.4 (3.3-5.0) g/dL Lab Acknowledgement New Spec Needed POC Troponin I 0.00 L (0.01-0.04) ng/ml Imaging Data Cervical spine x-ray: Attestation: I have reviewed the pertinent imaging results. My impression: Severe multilevel arthritic changes. C4 on 5 anterolisthesis. Radiologist's impression: Moderate to severe C4-5 anterolisthesis, may be degenerative but with no prior examination available for comparison. Cross-sectional imaging recommended if there is concern for traumatic injury. Otherwise, there is severe multilevel spondylosis with no other acute abnormality appreciated. Chest x-ray: Attestation: I have reviewed the pertinent imaging results. My impression: I do not note any marked abnormality. Radiologist's impression: No acute cardiopulmonary process detected. ECG Data Attestation: I personally reviewed and interpreted this ECG as follows: Interpretation: EKG by my read read shows AFib with right bundle-branch block. Rate of 67. Comparison with September EKG this is unchanged. Discharge Plan Discharge Clinical Impression: Radicular pain in left arm, Anterolisthesis of cervical spine Patient Disposition: Home, Self-Care Condition: Improved Additional Instructions: Stop hydrocodone for now. Instead you may use acetaminophen every 4-6 hours as needed for discomfort not to exceed 3 g or 3000 mg in a 24 hour. For pain not relieved by Tylenol you may use oxycodone 1/2-1 tab every 4-6 hours as needed. Please be aware that this is a narcotic like hydrocodone and may cause constipation or sedation. Use the lowest amount possible. Suggest the use of a stool softener, avoiding situations such as driving or being up on a foot stool as sedation may cause you to be a risk for fall. Follow-up with Dr. Villa for further evaluation. You may need MRI he of the cervical spine and or orthopedic consultation. Try to keep your neck in a neutral position. Prescriptions: No Action cholecalciferol (vitamin D3) 25 mcg (1,000 unit) capsule 25 mcg PO .QOD ascorbate calcium (vitamin C) 500 mg tablet 500 mg PO QDAY folic acid 1 mg tablet 1 mg PO QDAY ferrous sulfate 325 mg (65 mg iron) tablet 325 mg PO .EVERY OTHER DAY metformin 1,000 mg tablet 1,000 mg PO BID Qty: 180 3RF alendronate 70 mg tablet 70 mg PO QWEEK Qty: 12 3RF atenolol 50 mg tablet 50 mg PO BID Qty: 180 3RF chlorthalidone 25 mg tablet 25 mg PO QDAY Qty: 90 3RF gabapentin 300 mg capsule 300 mg PO QPM Qty: 90 3RF lisinopril 40 mg tablet 40 mg PO DAILY Qty: 90 3RF prednisone 20 mg tablet 20 mg PO BID Qty: 10 0RF hydrocodone-acetaminophen 5-325 mg tablet 1 tab PO Q8H PRN (Reason: pain) Qty: 20 0RF benifiber PO BID amoxicillin 500 mg capsule 2,000 mg PO ONCE Qty: 4 3RF Rx Instructions: Take 4 capsules (2000mg) 1 hour prior to dental appointment. trazodone 50 mg tablet 50 mg PO QHS Qty: 90 0RF Eliquis 5 mg tablet 5 mg PO BID Qty: 180 0RF Follow Up/Referrals: Hina Villa MD [Primary Care Provider] - Stand Alone Forms: [employer] Info Instructions
--- NOTE | 2024-06-28 23:17 | CRLHL7_ITS ---
For Patients: As a result of the Century Cures Act, medical imaging exams and procedure reports are released immediately into your electronic medical record. You may view this report before your referring provider. If you have questions, please contact your health care provider. Indication: Left arm pain Technique: Three views of the cervical spine Comparison: None Findings/Impression: Moderate to severe C4-5 anterolisthesis, may be degenerative but with no prior examination available for comparison. Cross-sectional imaging recommended if there is concern for traumatic injury. Otherwise, there is severe multilevel spondylosis with no other acute abnormality appreciated. Dictated by Carter Cervantes MD @ 06/29/2024 12:20:48 AM (Electronically Signed)
--- NOTE | 2024-06-28 23:17 | CRLHL7_ITS ---
For Patients: As a result of the Century Cures Act, medical imaging exams and procedure reports are released immediately into your electronic medical record. You may view this report before your referring provider. If you have questions, please contact your health care provider. Indication: Left arm pain Technique: Single view of the chest Comparison: Chest radiograph performed 08/05/2018 Findings/Impression: No acute cardiopulmonary process detected. Dictated by Carter Cervantes MD @ 06/29/2024 12:19:59 AM (Electronically Signed)
[2024-06-28 23:36] LABS: Lab Add On Test New Spec Needed
[2024-06-29 00:01] LABS: Basophils Absolute Auto 0.01 K/uL (0.00-0.30); Basophils Percent Auto 0.2 % (0.0-3.0); Eosinophils Absolute Auto 0.03 K/uL (0.00-0.50); Eosinophils Percent Auto 0.5 % (0.0-7.0); Hematocrit 42.7 % (33.0-51.0); Immature Granulocytes Abs Auto 0.08 K/uL (0.00-0.30); Immature Granulocytes Pct Auto 1.3 %; Lymphocytes Absolute Auto 1.81 K/uL (0.90-2.90); Lymphocytes Percent Auto 28.7 % (20-44); Mean Corpuscular HGB Conc 33 gm/dL (32-36); Mean Corpuscular Hemoglobin 32 pg (26-34); Mean Corpuscular Volume 96 fL (80-100); Monocytes Percent Auto 12.4 % (0.0-11.0); Neutrophils Percent Auto 56.9 % (42.0-72.0); Platelet Count* 164 K/uL (140-440); Red Blood Count 4.44 m/uL (4.00-5.20); White Blood Count* 6.31 K/uL (4.50-11.00)
[2024-06-29 00:06] LABS: Slide Review Reflex No
[2024-06-29 00:41] LABS: D Dimer Quantitative* 0.29 ug/ml (0.00-0.50)
[2024-06-29 00:49] LABS: Albumin* 4.4 g/dL (3.3-5.0)
[2024-06-29 00:50] LABS: Chloride* 97 mmol/L (96-114); Potassium* 3.6 mmol/L (3.6-5.1); Sodium* 135 mmol/L (135-149)
[2024-06-29 00:52] LABS: Anion Gap 10 mEq/L (7-15); Aspartate Amino Transferase* 23 U/L (12-35); Bilirubin Total* 0.7 mg/dL (0.1-1.5); Carbon Dioxide* 28 mmol/L (20-32); Creatinine* 0.8 mg/dL (0.5-1.5); Est. Creatinine Clearance* 44.51; Estimated Glomerular Filt Rate 74 ml/min; Total Protein* 7.1 g/dL (6.0-8.3)
[2024-06-29 00:53] LABS: Alanine Aminotransferase* 16 U/L (4-35); Alkaline Phosphatase* 74 U/L (40-150); Blood Urea Nitrogen* 27 mg/dL (7-30); Calcium* 10.4 mg/dL (8.4-10.6); Glucose* 123 mg/dL (60-115)
== END 2024-06-29 01:20 | disposition home or self-care (01) ==
PROVIDERS: Emergency Provider Family Medicine; PCP Internal Medicine
DX: M79.602 Pain in left arm (principal); M43.12 Spondylolisthesis, cervical region
CPT/HCPCS: 36415; 71045; 72040; 80053; 84484; 85025; 85379; 99284

== ENCOUNTER 2024-07-09 10:04 | Outpatient (CLI) | payer MEDICARE, BC, SELFPAY | END 2024-07-09 10:05 | disposition home or self-care (01) | LOC: NFLDREF 07-15 01:17 | PROVIDERS: PCP Internal Medicine; Referring Provider Internal Medicine; Visit Provider Internal Medicine | DX: I10 Essential (primary) hypertension (principal); M81.0 Age-related osteoporosis without current pathological fracture; E11.9 Type 2 diabetes mellitus without complications | CPT/HCPCS: 80048 ==

== ENCOUNTER 2025-01-06 08:43 | Outpatient (CLI) | payer MEDICARE, BC, SELFPAY | END 2025-01-06 08:44 | disposition home or self-care (01) | LOC: NFLDREF 08:44 | PROVIDERS: PCP Internal Medicine; Visit Provider Internal Medicine | DX: I10 Essential (primary) hypertension (principal); M81.0 Age-related osteoporosis without current pathological fracture; I48.91 Unspecified atrial fibrillation; E11.9 Type 2 diabetes mellitus without complications | CPT/HCPCS: 80053; 80061; 82043; 82306; 82570; 83970 ==

== ENCOUNTER 2025-01-18 12:25 | Outpatient (CLI) | payer MEDICARE, BC, SELFPAY ==
[2025-01-18 13:59] LABS: Hematocrit 41.6 % (33.0-51.0); Hemoglobin* 13.8 gm/dL (12.0-16.0); Immature Granulocytes Abs Auto 0.09 K/uL (0.00-0.30); Immature Granulocytes Pct Auto 1.4 %; Lymphocytes Absolute Auto 1.79 K/uL (0.90-2.90); Mean Corpuscular HGB Conc 33 gm/dL (32-36); Mean Corpuscular Hemoglobin 31 pg (26-34); Mean Corpuscular Volume 93 fL (80-100); RDW Coefficient of Variation % 13.2 % (11.5-15.5); Red Blood Count 4.48 m/uL (4.00-5.20); White Blood Count* 6.31 K/uL (4.50-11.00)
[2025-01-18 14:02] LABS: Slide Review Reflex No
== END 2025-01-18 12:26 | disposition home or self-care (01) ==
LOC: NPINS 12:26
PROVIDERS: PCP Internal Medicine; Visit Provider Nurse Practitioner
DX: D69.3 Immune thrombocytopenic purpura (principal)
CPT/HCPCS: 85025

== ENCOUNTER 2025-01-25 09:12 | Outpatient (CLI) | payer MEDICARE, BC, SELFPAY ==
[2025-01-25 11:33] LABS: Hematocrit 40.4 % (33.0-51.0); Hemoglobin* 13.2 gm/dL (12.0-16.0); Immature Granulocytes Abs Auto 0.08 K/uL (0.00-0.30); Immature Granulocytes Pct Auto 1.6 %; Lymphocytes Absolute Auto 1.38 K/uL (0.90-2.90); Mean Corpuscular HGB Conc 33 gm/dL (32-36); Mean Corpuscular Hemoglobin 31 pg (26-34); Mean Corpuscular Volume 93 fL (80-100); RDW Coefficient of Variation % 13.3 % (11.5-15.5); Red Blood Count 4.33 m/uL (4.00-5.20); White Blood Count* 5.07 K/uL (4.50-11.00)
[2025-01-25 11:48] LABS: Slide Review Reflex No
== END 2025-01-25 09:13 | disposition home or self-care (01) ==
LOC: NPINS 09:18 → NFLDREF 13:29
PROVIDERS: PCP Internal Medicine; Visit Provider Nurse Practitioner
DX: D69.3 Immune thrombocytopenic purpura (principal)
CPT/HCPCS: 85025

== ENCOUNTER 2025-02-01 09:10 | Outpatient (CLI) | payer MEDICARE, BC, SELFPAY ==
[2025-02-01 10:07] LABS: Hematocrit* 39.3 % (33.0-51.0); Hemoglobin* 13.1 gm/dL (12.0-16.0); Immature Granulocytes Abs Auto 0.03 K/uL (0.00-0.30); Immature Granulocytes Pct Auto 0.7 %; Lymphocytes Absolute Auto 1.28 K/uL (0.90-2.90); Mean Corpuscular HGB Conc 33 gm/dL (32-36); Mean Corpuscular Hemoglobin 31 pg (26-34); Mean Corpuscular Volume 93 fL (80-100); RDW Coefficient of Variation % 13.7 % (11.5-15.5); Red Blood Count* 4.24 m/uL (4.00-5.20); White Blood Count* 4.56 K/uL (4.50-11.00)
[2025-02-01 10:13] LABS: Slide Review Reflex No
== END 2025-02-01 09:11 | disposition home or self-care (01) ==
LOC: NPINS 09:13
PROVIDERS: PCP Internal Medicine; Visit Provider Nurse Practitioner
DX: D69.3 Immune thrombocytopenic purpura (principal)
CPT/HCPCS: 85025

== ENCOUNTER 2025-02-08 09:35 | Outpatient (CLI) | payer MEDICARE, BC, SELFPAY ==
[2025-02-08 09:50] LABS: Hematocrit 40.9 % (33.0-51.0); Hemoglobin* 13.5 gm/dL (12.0-16.0); Immature Granulocytes Pct Auto 1.2 %; Mean Corpuscular HGB Conc 33 gm/dL (32-36); Mean Corpuscular Hemoglobin 31 pg (26-34); Mean Corpuscular Volume 93 fL (80-100); RDW Coefficient of Variation % 13.6 % (11.5-15.5); Red Blood Count 4.41 m/uL (4.00-5.20); White Blood Count* 4.32 K/uL (4.50-11.00)
[2025-02-08 10:03] LABS: Immature Granulocytes Abs Auto 0.10 K/uL (0.00-0.30); Lymphocytes Absolute Auto 1.40 K/uL (0.90-2.90); Slide Review Reflex No
== END 2025-02-08 09:36 | disposition home or self-care (01) ==
LOC: NPINS 09:41
PROVIDERS: PCP Internal Medicine; Visit Provider Nurse Practitioner
DX: D69.3 Immune thrombocytopenic purpura (principal)
CPT/HCPCS: 85025

== ENCOUNTER 2025-02-15 09:26 | Outpatient (CLI) | payer MEDICARE, BC, SELFPAY ==
[2025-02-15 11:41] LABS: Hematocrit 40.7 % (33.0-51.0); Hemoglobin* 13.3 gm/dL (12.0-16.0); Immature Granulocytes Abs Auto 0.04 K/uL (0.00-0.30); Immature Granulocytes Pct Auto 0.7 %; Lymphocytes Absolute Auto 1.71 K/uL (0.90-2.90); Mean Corpuscular HGB Conc 33 gm/dL (32-36); Mean Corpuscular Hemoglobin 31 pg (26-34); Mean Corpuscular Volume 95 fL (80-100); RDW Coefficient of Variation % 13.8 % (11.5-15.5); Red Blood Count 4.29 m/uL (4.00-5.20); White Blood Count* 5.57 K/uL (4.50-11.00)
[2025-02-15 11:50] LABS: Slide Review Reflex No
== END 2025-02-15 09:27 | disposition home or self-care (01) ==
LOC: NPINS 09:27
PROVIDERS: PCP Internal Medicine; Visit Provider Nurse Practitioner
DX: D69.3 Immune thrombocytopenic purpura (principal)
CPT/HCPCS: 85025

== ENCOUNTER 2025-03-01 09:30 | Outpatient (CLI) | payer MEDICARE, BC, SELFPAY ==
[2025-03-01 10:39] LABS: Hematocrit* 40.1 % (33.0-51.0); Hemoglobin* 13.3 gm/dL (12.0-16.0); Immature Granulocytes Pct Auto 0.7 %; Mean Corpuscular HGB Conc 33 gm/dL (32-36); Mean Corpuscular Hemoglobin 31 pg (26-34); Mean Corpuscular Volume 94 fL (80-100); RDW Coefficient of Variation % 13.5 % (11.5-15.5); Red Blood Count* 4.26 m/uL (4.00-5.20); White Blood Count* 4.24 K/uL (4.50-11.00)
[2025-03-01 10:51] LABS: Immature Granulocytes Abs Auto 0.00 K/uL (0.00-0.30); Lymphocytes Absolute Auto 1.20 K/uL (0.90-2.90); Slide Review Reflex No
== END 2025-03-01 09:31 | disposition home or self-care (01) ==
LOC: NPINS 09:31
PROVIDERS: PCP Internal Medicine; Visit Provider Nurse Practitioner
DX: D69.3 Immune thrombocytopenic purpura (principal)
CPT/HCPCS: 85025

== ENCOUNTER 2025-03-08 09:34 | Outpatient (CLI) | payer MEDICARE, BC, SELFPAY ==
[2025-03-08 10:10] LABS: Hematocrit* 45.7 % (33.0-51.0); Hemoglobin* 15.0 gm/dL (12.0-16.0); Immature Granulocytes Abs Auto 0.37 K/uL (0.00-0.30); Immature Granulocytes Pct Auto 5.1 %; Lymphocytes Absolute Auto 1.66 K/uL (0.90-2.90); Mean Corpuscular HGB Conc 33 gm/dL (32-36); Mean Corpuscular Hemoglobin 31 pg (26-34); Mean Corpuscular Volume 93 fL (80-100); RDW Coefficient of Variation % 13.4 % (11.5-15.5); Red Blood Count* 4.91 m/uL (4.00-5.20); White Blood Count* 7.27 K/uL (4.50-11.00)
[2025-03-08 10:32] LABS: Slide Review Acceptable Review (Acceptable); Slide Review Reflex Yes
== END 2025-03-08 09:35 | disposition home or self-care (01) ==
LOC: NPINS 09:37
PROVIDERS: PCP Internal Medicine; Visit Provider Nurse Practitioner
DX: D69.3 Immune thrombocytopenic purpura (principal)
CPT/HCPCS: 85025

== ENCOUNTER 2025-03-09 10:41 | Outpatient (CLI) | payer MEDICARE, BC, SELFPAY ==
--- NOTE | 2025-03-09 11:00 | CRLHL7_ITS ---
For Patients: As a result of the 21st Century Cures Act, medical imaging exams and procedure reports are released immediately into your electronic medical record. You may view this report before your referring provider. If you have questions, please contact your health care provider. Indication: AORTIC Dilatation, PULMONARY NODULES, YEAR FOLLOW-UP, A-FIB Technique: CT Chest WITHOUT Please note that all CT scans at this facility use dose modulation, iterative reconstruction, and/or weight-based dosing when appropriate to reduce radiation dose to as low as reasonably achievable. Comparison: 03/10/2024 Findings: Faint ground-glass nodule in the right upper lobe is new and measures 5.9 millimeters, 10/01. There is also a new solid noncalcified nodule within the right lower lobe which measures 5.8 millimeters, . Also new ground-glass density within the right middle lobe measures up to 1.7 cm, . Chronic scarring within the right lower lobe adjacent to the posterior right hemidiaphragm. Ill-defined nodular density in the right lower lobe is new and measures 6.3 millimeters, . Stable nodule in the left lower lobe measuring 5 millimeters, . Decreased conspicuity of additional left lower lobe nodule since the prior study. Other tiny nodules are present elsewhere throughout the left lung measuring 3 millimeters or less including a 3 millimeter nodule left lower lobe, . No adenopathy. Vascular calcifications. Calcified stones in the gallbladder. Similar size of the ascending aorta which measures 4.1 cm. Impression: Stable size of the ascending aorta measuring 4.1 cm. Bilateral pulmonary nodules, some are similar, some are new and some are less conspicuous bilaterally. Continued follow-up in 1 year recommended. Please note that all CT scans at this facility use dose modulation, iterative reconstruction, and/or weight-based dosing when appropriate to reduce radiation dose to as low as reasonably achievable. Dictated by Kelton Torres MD @ 03/09/2025 12:07:59 PM (Electronically Signed)
== END 2025-03-09 10:42 | disposition home or self-care (01) ==
LOC: CT 10:42
PROVIDERS: PCP Internal Medicine; Visit Provider Internal Medicine
DX: I71.21 Aneurysm of the ascending aorta, without rupture (principal); R91.8 Other nonspecific abnormal finding of lung field
CPT/HCPCS: 71250

== ENCOUNTER 2025-03-15 09:37 | Outpatient (CLI) | payer MEDICARE, BC, SELFPAY ==
[2025-03-15 10:19] LABS: Hematocrit* 42.8 % (33.0-51.0); Hemoglobin* 14.0 gm/dL (12.0-16.0); Immature Granulocytes Abs Auto 0.07 K/uL (0.00-0.30); Immature Granulocytes Pct Auto 1.0 %; Lymphocytes Absolute Auto 1.57 K/uL (0.90-2.90); Mean Corpuscular HGB Conc 33 gm/dL (32-36); Mean Corpuscular Hemoglobin 31 pg (26-34); Mean Corpuscular Volume 95 fL (80-100); RDW Coefficient of Variation % 13.5 % (11.5-15.5); Red Blood Count* 4.52 m/uL (4.00-5.20); White Blood Count* 7.15 K/uL (4.50-11.00)
[2025-03-15 10:24] LABS: Slide Review Reflex No
== END 2025-03-15 09:38 | disposition home or self-care (01) ==
LOC: NPINS 09:38
PROVIDERS: PCP Internal Medicine; Visit Provider Nurse Practitioner
DX: D69.3 Immune thrombocytopenic purpura (principal)
CPT/HCPCS: 85025

== ENCOUNTER 2025-03-22 08:21 | Outpatient (CLI) | payer MEDICARE, BC, SELFPAY ==
[2025-03-22 10:17] LABS: Hematocrit* 40.6 % (33.0-51.0); Hemoglobin* 13.4 gm/dL (12.0-16.0); Immature Granulocytes Abs Auto 0.03 K/uL (0.00-0.30); Immature Granulocytes Pct Auto 0.6 %; Lymphocytes Absolute Auto 1.37 K/uL (0.90-2.90); Mean Corpuscular HGB Conc 33 gm/dL (32-36); Mean Corpuscular Hemoglobin 31 pg (26-34); Mean Corpuscular Volume 94 fL (80-100); RDW Coefficient of Variation % 13.6 % (11.5-15.5); Red Blood Count* 4.31 m/uL (4.00-5.20); White Blood Count* 5.16 K/uL (4.50-11.00)
[2025-03-22 10:20] LABS: Slide Review Reflex No
== END 2025-03-22 08:22 | disposition home or self-care (01) ==
LOC: NPINS 05-10 08:57
PROVIDERS: PCP Internal Medicine; Visit Provider Nurse Practitioner
DX: D69.3 Immune thrombocytopenic purpura (principal)
CPT/HCPCS: 85025

== ENCOUNTER 2025-03-29 08:32 | Outpatient (CLI) | payer MEDICARE, BC, SELFPAY ==
[2025-03-29 10:59] LABS: Hematocrit* 39.8 % (33.0-51.0); Hemoglobin* 13.2 gm/dL (12.0-16.0); Immature Granulocytes Abs Auto 0.03 K/uL (0.00-0.30); Immature Granulocytes Pct Auto 0.6 %; Lymphocytes Absolute Auto 1.55 K/uL (0.90-2.90); Mean Corpuscular HGB Conc 33 gm/dL (32-36); Mean Corpuscular Hemoglobin 32 pg (26-34); Mean Corpuscular Volume 95 fL (80-100); RDW Coefficient of Variation % 13.5 % (11.5-15.5); Red Blood Count* 4.18 m/uL (4.00-5.20); White Blood Count* 5.39 K/uL (4.50-11.00)
[2025-03-29 11:04] LABS: Slide Review Reflex No
== END 2025-03-29 08:33 | disposition home or self-care (01) ==
LOC: NPINS 05-10 08:57
PROVIDERS: PCP Internal Medicine; Visit Provider Nurse Practitioner
DX: D69.3 Immune thrombocytopenic purpura (principal)
CPT/HCPCS: 85025

== ENCOUNTER 2025-04-05 09:30 | Outpatient (CLI) | payer MEDICARE, BC, SELFPAY ==
[2025-04-05 11:11] LABS: Hematocrit* 40.7 % (33.0-51.0); Hemoglobin* 13.4 gm/dL (12.0-16.0); Immature Granulocytes Abs Auto 0.04 K/uL (0.00-0.30); Immature Granulocytes Pct Auto 0.8 %; Lymphocytes Absolute Auto 1.35 K/uL (0.90-2.90); Mean Corpuscular HGB Conc 33 gm/dL (32-36); Mean Corpuscular Hemoglobin 31 pg (26-34); Mean Corpuscular Volume 95 fL (80-100); RDW Coefficient of Variation % 13.6 % (11.5-15.5); Red Blood Count* 4.28 m/uL (4.00-5.20); White Blood Count* 4.95 K/uL (4.50-11.00)
[2025-04-05 11:15] LABS: Slide Review Reflex No
== END 2025-04-05 09:31 | disposition home or self-care (01) ==
LOC: NPINS 05-10 08:25
PROVIDERS: PCP Internal Medicine; Visit Provider Nurse Practitioner
DX: D69.3 Immune thrombocytopenic purpura (principal)
CPT/HCPCS: 85025

== ENCOUNTER 2025-04-19 09:28 | Outpatient (CLI) | payer MEDICARE, BC, SELFPAY ==
[2025-04-19 10:20] LABS: Hematocrit* 40.9 % (33.0-51.0); Hemoglobin* 13.4 gm/dL (12.0-16.0); Immature Granulocytes Abs Auto 0.03 K/uL (0.00-0.30); Immature Granulocytes Pct Auto 0.6 %; Lymphocytes Absolute Auto 1.45 K/uL (0.90-2.90); Mean Corpuscular HGB Conc 33 gm/dL (32-36); Mean Corpuscular Hemoglobin 31 pg (26-34); Mean Corpuscular Volume 96 fL (80-100); RDW Coefficient of Variation % 13.4 % (11.5-15.5); Red Blood Count* 4.27 m/uL (4.00-5.20); White Blood Count* 5.22 K/uL (4.50-11.00)
[2025-04-19 10:34] LABS: Slide Review Reflex No
== END 2025-04-19 09:29 | disposition home or self-care (01) ==
LOC: NPINS 09:29
PROVIDERS: PCP Internal Medicine; Visit Provider Nurse Practitioner
DX: D69.3 Immune thrombocytopenic purpura (principal)
CPT/HCPCS: 85025

== ENCOUNTER 2025-04-26 09:38 | Outpatient (CLI) | payer MEDICARE, BC, SELFPAY ==
[2025-04-26 11:22] LABS: Hematocrit* 40.2 % (33.0-51.0); Hemoglobin* 13.2 gm/dL (12.0-16.0); Immature Granulocytes Abs Auto 0.04 K/uL (0.00-0.30); Immature Granulocytes Pct Auto 0.8 %; Lymphocytes Absolute Auto 1.50 K/uL (0.90-2.90); Mean Corpuscular HGB Conc 33 gm/dL (32-36); Mean Corpuscular Hemoglobin 32 pg (26-34); Mean Corpuscular Volume 96 fL (80-100); RDW Coefficient of Variation % 13.3 % (11.5-15.5); Red Blood Count* 4.19 m/uL (4.00-5.20); White Blood Count* 4.83 K/uL (4.50-11.00)
[2025-04-26 11:24] LABS: Slide Review Reflex No
== END 2025-04-26 09:39 | disposition home or self-care (01) ==
LOC: NPINS 09:44
PROVIDERS: PCP Internal Medicine; Visit Provider Nurse Practitioner
DX: D69.3 Immune thrombocytopenic purpura (principal)
CPT/HCPCS: 85025

== ENCOUNTER 2025-05-17 09:12 | Outpatient (CLI) | payer MEDICARE, BC, SELFPAY ==
[2025-05-17 10:17] LABS: Hematocrit* 41.4 % (33.0-51.0); Hemoglobin* 13.4 gm/dL (12.0-16.0); Immature Granulocytes Pct Auto 0.5 %; Mean Corpuscular HGB Conc 32 gm/dL (32-36); Mean Corpuscular Hemoglobin 31 pg (26-34); Mean Corpuscular Volume 96 fL (80-100); RDW Coefficient of Variation % 13.2 % (11.5-15.5); Red Blood Count* 4.30 m/uL (4.00-5.20); White Blood Count* 4.21 K/uL (4.50-11.00)
[2025-05-17 10:21] LABS: Immature Granulocytes Abs Auto 0.00 K/uL (0.00-0.30); Lymphocytes Absolute Auto 1.30 K/uL (0.90-2.90); Slide Review Reflex No
== END 2025-05-17 09:13 | disposition home or self-care (01) ==
LOC: NPINS 09:16
PROVIDERS: PCP Internal Medicine; Visit Provider Nurse Practitioner
DX: D69.3 Immune thrombocytopenic purpura (principal)
CPT/HCPCS: 85025

== ENCOUNTER 2025-05-24 08:58 | Outpatient (CLI) | payer MEDICARE, BC, SELFPAY ==
[2025-05-24 10:07] LABS: Hematocrit* 41.5 % (33.0-51.0); Hemoglobin* 13.6 gm/dL (12.0-16.0); Immature Granulocytes Abs Auto 0.03 K/uL (0.00-0.30); Immature Granulocytes Pct Auto 0.6 %; Lymphocytes Absolute Auto 1.51 K/uL (0.90-2.90); Mean Corpuscular HGB Conc 33 gm/dL (32-36); Mean Corpuscular Hemoglobin 32 pg (26-34); Mean Corpuscular Volume 97 fL (80-100); RDW Coefficient of Variation % 13.0 % (11.5-15.5); Red Blood Count* 4.27 m/uL (4.00-5.20); White Blood Count* 4.97 K/uL (4.50-11.00)
[2025-05-24 10:10] LABS: Slide Review Reflex No
== END 2025-05-24 08:59 | disposition home or self-care (01) ==
LOC: NPINS 08:59
PROVIDERS: PCP Internal Medicine; Visit Provider Nurse Practitioner
DX: D69.3 Immune thrombocytopenic purpura (principal)
CPT/HCPCS: 85025